=== PATIENT | male | born 1980 | race Caucasian/White ===

== ENCOUNTER 2020-06-26 21:03 | Emergency (ER) | payer OTHER, SELFPAY ==
[2020-06-26 21:21] VITALS: BP 177/124; PULSE 118; RESP 18; TEMP 37.8; O2SAT 95; BMI 41.3
--- NOTE | 2020-06-26 21:44 | XR_ITS ---
WS: [id number] Portable AP upright chest, 06/26/2020 Clinical Data: dyspnea/fever Comparison: Portable chest, 08/23/2018. Findings: There are patchy bilateral pulmonary opacities most consistent with pneumonia. No nodules, masses or effusions are seen. The heart is at the upper limits of normal. The pulmonary vascularity i s not increased. No pneumothorax is seen. XR/XR chest 1V portable [id number] Impression: Patchy bilateral pulmonary opacities most consistent with pneumonia.
--- NOTE | 2020-06-26 21:47 | CTR_ITS ---
PROCEDURE INFORMATION: Exam: CT Head Without Contrast Exam date and time: 06/26/2020 9:52 PM Age: 39 years old Clinical indication: Pain; Headache TECHNIQUE: Imaging protocol: Computed tomography of the head without contrast. Radiation optimization: All CT scans at this facility use at least one of these dose optimization techniques: automated exposure control; mA and/or kV adjustment per patient size (includes targeted exams where dose is matched to clinical indication); or iterative reconstruction. ADDITIONAL STUDY INFORMATION: Total DLP (mGy-cm): 987.03 COMPARISON: CT head wo con* [id number] 08/23/2018 9:17 AM FINDINGS: At least moderate intracranial arterial calcifications are demonstrated, unexpected for the patient's stated age. Evaluation of the brain demonstrates no other areas of abnormal density. Size of ventricular system appears within normal limits for the patient's stated age. No depressed calvarial fracture is demonstrated. Visualized paranasal sinuses and mastoid air cells demonstrate no significant opacification. CT/CT head wo con* [id number] IMPRESSION: No acute intracranial process is demonstrated. At least moderate intracranial arterial calcifications are demonstrated, unexpected for the patient's stated age. Radiation Dose CTDIVOL = (mGy): DLP = 987.03 (mGy-cm)
--- NOTE | 2020-06-26 22:33 | ED_ITS ---
HPI - Fever General: Chief Complaint: Fever Stated Complaint: fever 9 days, headache, cough, SOB Time Seen by Provider: 06/26/20 21:35 History of Present Illness: HPI Narrative: The patient is a 39-year-old male with past medical history hypertension who comes to the ER complaining of 9 days of headache, fever, shortness of breath, and in the past couple days he has had an increasing cough that feels deeper in his chest he says. He also complains of reduced smell and taste, fatigue, muscle aches. He says it started in the first couple days of what he thought was a sinus infection and congestion but it had worsened. MD elicited complaint: fever and malaise Exacerbating factors: nothing Relieving factors: nothing Associated symptoms: Reports chills, cough, headache(s), myalgias, nasal congestion and sinus pain; Deny flank pain, chest pain, extremity pain, stiffness or vomiting Treatments prior to arrival fever: acetaminophen Review of Systems General: Reports: 10 or more systems reviewed and unremarkable except in HPI and below Const: Reports: fever(s), chills and fatigue Eyes: Denies: change in vision, blurry vision or eye redness ENMT: Reports: nasal congestion and sinus pain Card: Denies: chest pain, palpitations, irregular heart rhythm, edema, dyspnea on exertion or orthopnea Resp: Reports: dyspnea and non-productive cough; Denies: productive cough GI: Denies: vomiting : Denies: flank pain, urinary frequency or urinary urgency Musc: Denies: neck pain, back pain, extremity pain, joint pain, joint redness, limited range of motion or muscle weakness Skin/Breast: Denies: rash, pruritus, erythema, skin pain or skin tenderness Neuro: Reports: headache(s) Psych: Denies: anxiety or depression Endo: Denies: polyuria All/Imm: Denies: urticaria, throat swelling or tongue swelling Physical Exam Const: COMMON NORMALS: no acute distress, average body habitus, patient oriented x3, no limitations, healthy appearing, alert and well nourished GENERAL APPEARANCE: cooperative, comfortable, well kempt and well developed ORIENTATION/CONSCIOUSNESS: Yes awake, Yes oriented to person, Yes oriented to place and Yes oriented to time HENMT: COMMON NORMALS: normocephalic, external ears normal and Normal external nose present HEAD & SCALP: normal to inspection and normocephalic NOSE: Normal external nose present EXTERNAL EAR: Yes external ears normal MOUTH: Normal oral and palatal mucosa present THROAT: posterior oropharynx normal Eye: COMMON NORMALS: Equal, round and reactive pupils present and EOMs intact bilaterally GENERAL EYE: appearance normal, both eyes and all related structures PUPIL: Yes Equal, round and reactive pupils present Neck/C-Spine: COMMON NORMALS: full ROM, no lymphadenopathy, no meningeal signs and no JVD GENERAL: Yes normal visual inspection Lymph: LYMPHATIC: no lymphadenopathy noted Chest: COMMONS NORMALS: normal inspection of the chest and normal palpation of entire chest wall Resp: COMMON NORMALS: normal respiratory effort, No retractions, No use of accessory muscles, clear to auscultation bilaterally and percussion normal EFFORT & INSPECTION: Yes able to speak in complete sentences AUSCULTATION: clear to auscultation bilaterally PERCUSSION: percussion normal Cardio: COMMON NORMALS: no JVD, regular rhythm, S1 normal heart sound present, S2 normal heart sound present and Peripheral pulses 2+ throughout RATE: tachycardic RHYTHM: regular rhythm HEART SOUNDS: S1 normal heart sound present and S2 normal heart sound present PERIPHERAL PULSES: Peripheral pulses 2+ throughout GI: COMMON NORMALS: Normal to inspection, nondistended, normoactive bowel sounds present, Soft to palpation, non-tender and no masses INSPECTION: Yes normal to inspection PALPATION: Yes Soft to palpation : COMMON NORMALS: Yes no CVA tenderness BLADDER/KIDNEY EXAM: Yes no CVA tenderness Back/Pelvis: COMMON NORMALS: no CVA tenderness, thoracic and lumbar spine normal to inspection, no thoracic nor lumbar tenderness and thoraco-lumbar ROM normal Extremity: COMMON NORMALS: normal to inspection, full ROM, capillary refill normal, no joint enlargement and no pedal edema GENERAL: Yes normal exam except as noted Neuro: COMMON NORMALS: patient oriented x3, CN's II-XII intact bilaterally, moves all extremities, no focal motor deficits, no sensory deficits noted and gait normal SENSORIUM/ORIENTATION: Yes alert, Yes oriented to person, Yes oriented to place and Yes oriented to time MENINGEAL SIGNS: Yes no meningeal signs Psych: COMMON NORMALS: mental status grossly normal, Normal thought process present, cooperative, normal affect and speech normal APPEARANCE: Yes well kempt ATTITUDE: Yes calm SPEECH: Yes normal speech THOUGHT PROCESS: Normal thought process present Skin: COMMON NORMALS: no rashes or lesions noted GENERAL SKIN EXAM: no rashes or lesions noted Course Vital Signs: Vital signs: Vital Signs Temperature 98.2 F 06/27/20 00:02 Pulse Rate 89 06/26/20 23:58 Respiratory Rate 18 06/26/20 23:58 Blood Pressure 159/93 06/26/20 23:58 Pulse Oximetry 93 06/26/20 23:58 MDM - Fever MDM Narrative: Medical decision making narrative: Patient swab negative for Covid however still clinically suspicious for it. Sent to [facility] swab. Tylenol and ibuprofen and IV fluids were given and reduced his fever. Patient feels better and stable for discharge. CT of his chest shows a patchy infectious process likely atypical pneumonia. Will discharge with Medrol Dosepak, azithromycin, and albuterol. Rotate Tylenol and ibuprofen and drink lots of fluids. Primary care physician in a couple days. ER with worsening symptoms Lab Data: Labs: Lab Results 06/26/20 06/26/20 06/26/20 Range/Units 22:25 22:25 22:25 WBC 5.1 (4.0-10.0) 10^3/ uL RBC 5.56 H (4.1-5.3) 10^6/u L Hgb 15.3 (11.7-16.6) g/dL Hct 46.0 (42.0-52.0) % MCV 82.7 (80-94) fL MCH 27.5 L (28.0-34.0) pg MCHC 33.3 (30.0-36.0) g/dL RDW 12.4 (12.1-15.1) % Plt Count 192 (130-400) 10^3/c mm MPV 11.5 H (7.4-10.4) fL Neut % (Auto) 62.9 % Lymph % (Auto) 27.7 % Nolan % (Auto) 8.2 % Eos % (Auto) 0.0 % Baso % (Auto) 0.4 % Neut # (Auto) 3.23 (1.8-7.7) 10^3/u L Lymph # (Auto) 1.4 (0.8-4.8) 10^3/u L Nolan # (Auto) 0.4 (0.2-0.9) 10^3/u L Eos # (Auto) 0.0 (0.0-0.8) 10^3/u L Baso # (Auto) 0.0 (0.0-0.1) 10^3/u L Nucleated RBC % (a uto) 0 % Nucleated RBCs # 0.0 /100WBC D-Dimer 0.42 (0-0.59) ug/mIFE U Sodium 129 L (136-145) mmol/L Potassium 3.6 (3.5-5.1) mmol/L Chloride 96 L (98-107) mmol/L Carbon Dioxide 22 (22-29) mmol/L Anion Gap 14.6 (5-19) BUN 7 (6-20) mg/dL Creatinine 0.5 L (0.7-1.2) mg/dL GFR Calculation 183.2 H (90-130) mL/min Glucose 227 H (65-115) mg/dL Calculated Osmolal ity 273 L (285-295) mOsm/k g Lactic Acid Calcium 8.3 L (8.5-10.5) mg/dL Total Bilirubin 0.4 (0.15-1.2) mg/dL AST 24 (0-40) U/L ALT 26 (0-41) U/L Alkaline Phosphata se 92 (40-130) IU/L Troponin T Gen 5 n g/L (0-15) ng/L C-Reactive Protein 74.5 H (0.0-4.9) mg/L Total Protein 6.8 (6.6-8.7) g/dL Albumin 3.6 (3.5-5.2) g/dL Globulin 3.2 (1.3-4.6) g/dL Influenza Type A A g (Negative) Influenza Type B A g (Negative) SARS-CoV-2 Ag (Rap id) (Negative) 06/26/20 06/26/20 06/26/20 Range/Units 22:25 22:25 22:25 WBC (4.0-10.0) 10^3/ uL RBC (4.1-5.3) 10^6/u L Hgb (11.7-16.6) g/dL Hct (42.0-52.0) % MCV (80-94) fL MCH (28.0-34.0) pg MCHC (30.0-36.0) g/dL RDW (12.1-15.1) % Plt Count (130-400) 10^3/c mm MPV (7.4-10.4) fL Neut % (Auto) % Lymph % (Auto) % Nolan % (Auto) % Eos % (Auto) % Baso % (Auto) % Neut # (Auto) (1.8-7.7) 10^3/u L Lymph # (Auto) (0.8-4.8) 10^3/u L Nolan # (Auto) (0.2-0.9) 10^3/u L Eos # (Auto) (0.0-0.8) 10^3/u L Baso # (Auto) (0.0-0.1) 10^3/u L Nucleated RBC % (a uto) % Nucleated RBCs # /100WBC D-Dimer (0-0.59) ug/mIFE U Sodium (136-145) mmol/L Potassium (3.5-5.1) mmol/L Chloride (98-107) mmol/L Carbon Dioxide (22-29) mmol/L Anion Gap (5-19) BUN (6-20) mg/dL Creatinine (0.7-1.2) mg/dL GFR Calculation (90-130) mL/min Glucose (65-115) mg/dL Calculated Osmolal ity (285-295) mOsm/k g Lactic Acid Cancelled Calcium (8.5-10.5) mg/dL Total Bilirubin (0.15-1.2) mg/dL AST (0-40) U/L ALT (0-41) U/L Alkaline Phosphata se (40-130) IU/L Troponin T Gen 5 n g/L 11 (0-15) ng/L C-Reactive Protein (0.0-4.9) mg/L Total Protein (6.6-8.7) g/dL Albumin (3.5-5.2) g/dL Globulin (1.3-4.6) g/dL Influenza Type A A g Negative (Negative) Influenza Type B A g Negative (Negative) SARS-CoV-2 Ag (Rap id) (Negative) 06/26/20 06/26/20 Range/Units 22:25 23:00 WBC (4.0-10.0) 10^3/ uL RBC (4.1-5.3) 10^6/u L Hgb (11.7-16.6) g/dL Hct (42.0-52.0) % MCV (80-94) fL MCH (28.0-34.0) pg MCHC (30.0-36.0) g/dL RDW (12.1-15.1) % Plt Count (130-400) 10^3/c mm MPV (7.4-10.4) fL Neut % (Auto) % Lymph % (Auto) % Nolan % (Auto) % Eos % (Auto) % Baso % (Auto) % Neut # (Auto) (1.8-7.7) 10^3/u L Lymph # (Auto) (0.8-4.8) 10^3/u L Nolan # (Auto) (0.2-0.9) 10^3/u L Eos # (Auto) (0.0-0.8) 10^3/u L Baso # (Auto) (0.0-0.1) 10^3/u L Nucleated RBC % (a uto) % Nucleated RBCs # /100WBC D-Dimer (0-0.59) ug/mIFE U Sodium (136-145) mmol/L Potassium (3.5-5.1) mmol/L Chloride (98-107) mmol/L Carbon Dioxide (22-29) mmol/L Anion Gap (5-19) BUN (6-20) mg/dL Creatinine (0.7-1.2) mg/dL GFR Calculation (90-130) mL/min Glucose (65-115) mg/dL Calculated Osmolal ity (285-295) mOsm/k g Lactic Acid 0.9 Calcium (8.5-10.5) mg/dL Total Bilirubin (0.15-1.2) mg/dL AST (0-40) U/L ALT (0-41) U/L Alkaline Phosphata se (40-130) IU/L Troponin T Gen 5 n g/L (0-15) ng/L C-Reactive Protein (0.0-4.9) mg/L Total Protein (6.6-8.7) g/dL Albumin (3.5-5.2) g/dL Globulin (1.3-4.6) g/dL Influenza Type A A g (Negative) Influenza Type B A g (Negative) SARS-CoV-2 Ag (Rap id) Negative (Negative) Discharge Plan Discharge Patient Disposition: Home Clinical Impression: Atypical pneumonia Condition: Stable Prescriptions: New azithromycin 250 mg tablet 250 mg PO DAILY 4 Days Qty: 4 RF: 0 Medrol (El) 4 mg tablets,dose pack See Rx Instructions .ROUTE .COMPLEX Qty: 21 RF: 0 albuterol sulfate 90 mcg/actuation HFA aerosol inhaler 2 inh inhalation Q6H PRN (Reason: shortness of breath or wheezing) 30 Days RF: 0 Discharge Orders: Discharge ED (Routine); Ordered 06/27/20 Ordered By: Raj Booth Referrals: Radha Arguello NP [Primary Care Provider] - Discharge Diet: Advance as tolerated Discharge Activity: Resume usual activity Patient Instructions: Bacterial Pneumonia (ED), Opioid Safety Activity Restrictions/Additional Instructions: You likely have had a viral infection that has given way to a bacterial pneumonia. Please take the antibiotics, steroids, and use the albuterol to help with shortness of breath. Rotate Tylenol and ibuprofen every 4-6 hours to help with your fevers. Follow-up with your primary care physician in 2 days to monitor improvement of your symptoms and return to the ER with worsening symptoms. 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
[2020-06-26 22:35] LABS: Basophils % 0.4 %; Hemoglobin 15.3 g/dL (11.7-16.6); Lymphocytes # 1.4 10^3/uL (0.8-4.8); Lymphocytes % 27.7 %; Mean Corpuscular HGB Conc 33.3 g/dL (30.0-36.0); Mean Corpuscular Hemoglobin 27.5 pg (28.0-34.0); Mean Corpuscular Volume 82.7 fL (80-94); Mean Platelet Volume 11.5 fL (7.4-10.4); Monocytes # 0.4 10^3/uL (0.2-0.9); Monocytes % 8.2 %; Neutrophils # 3.23 10^3/uL (1.8-7.7); Neutrophils % 62.9 %; Nucleated Red Blood Cells % 0 %; Platelet Count 192 10^3/cmm (130-400); Red Blood Count 5.56 10^6/uL (4.1-5.3); Red Cell Distribution Width 12.4 % (12.1-15.1); White Blood Count 5.1 10^3/uL (4.0-10.0)
[2020-06-26] MEDS: sodium chloride 0.9% 1,000 ML 150 ML IV (22:36)
[2020-06-26] MEDS: ondansetron 2 mg/ML SDV 2 mL 4 MG IV (22:39)
[2020-06-26] MEDS: ibuprofen 800 mg tablet PO (22:40)
[2020-06-26] MEDS: acetaminophen 325 mg Tablet 650 MG PO (22:40)
[2020-06-26 22:46] VITALS: BP 181/120; PULSE 104; RESP 21; O2SAT 93
[2020-06-26 22:49] LABS: D Dimer 0.42 ug/mIFEU (0-0.59)
[2020-06-26 22:55] LABS: Alanine Aminotransferase 26 U/L (0-41); Albumin Level 3.6 g/dL (3.5-5.2); Alkaline Phosphatase 92 IU/L (40-130); Blood Urea Nitrogen 7 mg/dL (6-20); C Reactive Protein 74.5 mg/L (0.0-4.9); Calcium 8.3 mg/dL (8.5-10.5); Carbon Dioxide 22 mmol/L (22-29); Chloride 96 mmol/L (98-107); Globulin 3.2 g/dL (1.3-4.6); Glomerular Filtration Rate 183.2 mL/min (90-130); Glucose 227 mg/dL (65-115); Osmolality Calculated 273 mOsm/kg (285-295); Sodium 129 mmol/L (136-145); Total Bilirubin 0.4 mg/dL (0.15-1.2); Total Protein 6.8 g/dL (6.6-8.7)
[2020-06-26 22:57] LABS: Influenza A by IFA Negative (Negative); SARS Covid-2 Antigen Negative (Negative); Troponin T (5th) Once 11 ng/L (0-15)
[2020-06-26 22:58] LABS: Influenza B by IFA Negative (Negative)
[2020-06-26 22:59] LABS: Anion Gap 14.6 (5-19); Aspartate Amino Transferase 24 U/L (0-40); Potassium 3.6 mmol/L (3.5-5.1)
--- NOTE | 2020-06-26 23:20 | CTR_ITS ---
PROCEDURE INFORMATION: Exam: CT Angiography Chest With Contrast Exam date and time: 06/26/2020 11:33 PM Age: 39 years old Clinical indication: Patient HX: Persistent fever. Exam performed twice due to iv leak. Best exam submitted. ; Additional info: R/O pe TECHNIQUE: Imaging protocol: Computed tomographic angiography of the chest with contrast. 3D rendering (Not supervised by radiologist): MIP and/or 3D reconstructed images were created by the technologist. Radiation optimization: All CT scans at this facility use at least one of these dose optimization techniques: automated exposure control; mA and/or kV adjustment per patient size (includes targeted exams where dose is matched to clinical indication); or iterative reconstruction. Contrast material: OMNI 350; Contrast volume: 75 ml; Contrast route: INTRAVENOUS (IV); COMPARISON: CR XR chest 1V portable [id number] 06/26/2020 9:43 PM RADIATION DOSE METRICS: Total DLP (mGy-cm): 1113.07 FINDINGS: Pulmonary arteries: Normal. No pulmonary emboli. Aorta: Unremarkable. No aortic aneurysm. No aortic dissection. Lungs: Patchy bilateral airspace opacities suggestive of an infectious process. Pleural spaces: Unremarkable. No pneumothorax. No pleural effusion. Heart: Unremarkable. No cardiomegaly. No pericardial effusion. Lymph nodes: Scattered prominent mediastinal lymph nodes measuring up to 11 mm, nonspecific. Liver: Hepatic steatosis. Bones/joints: Unremarkable. No acute fracture. Soft tissues: Unremarkable. CT/CT angio chest PE protcl [id number] IMPRESSION: 1. Negative for pulmonary embolus. 2. Patchy bilateral airspace opacities suggestive of an infectious process. 3. Hepatic steatosis. 4. Scattered prominent mediastinal lymph nodes measuring up to 11 mm, nonspecific. Radiation Dose CTDIVOL = (mGy): DLP = 1113.07 (mGy-cm)
[2020-06-26 23:31] VITALS: BP 184/135; PULSE 99; RESP 19; O2SAT 94
[2020-06-26 23:41] LABS: Lactic Sepsis W/Reflex 0.9 mmol/L (0.5-2.2)
[2020-06-26] MEDS: iohexol 350 mg/mL 100 mL Btl IV (23:43)
[2020-06-26] MEDS: azithromycin 250 mg Tablet 500 MG PO (23:55)
[2020-06-26] MEDS: cloNIDine 0.1 mg Tablet 0.2 MG PO (23:56)
[2020-06-26] MEDS: dexamethasone 10 mg/mL INJ IVP (23:57)
[2020-06-26 23:58] VITALS: BP 159/93; PULSE 89; RESP 18; O2SAT 93
[2020-06-27 00:02] VITALS: TEMP 36.8
[2020-06-27 00:22] VITALS: PULSE 92; RESP 18; O2SAT 96
[2020-06-27] MEDS: albuterol 8 gm MDI 2 PUFF INHALATION (00:22)
[2020-06-27 00:27] VITALS: PULSE 88
[2020-06-27 01:02] VITALS: BP 162/105; PULSE 93; RESP 17; O2SAT 93
[2020-06-28 18:11] LABS: Coronavirus Test Green County Detected
--- NOTE | 2020-06-29 08:11 | PC.NURSE ---
left message for patient to call back to ER and get covid results
--- NOTE | 2020-06-29 09:56 | PC.NURSE ---
notified pt of positive covid results. mailed result to pt at pt's request
== END 2020-06-27 01:02 | disposition home or self-care (01) ==
PROVIDERS: Emergency Provider Family Medicine; PCP Nurse Practitioner Family
DX: U07.1 COVID-19 (principal); J12.82 Pneumonia due to coronavirus disease 2019
CPT/HCPCS: 70450; 71045; 71275; 80053; 83605; 84484; 85025; 85378; 86140; 87426; 87635; 87804; 94640; 96374; 96375; 99284; J1100; J2405; J3535; J7030; Q0144; Q9967

== ENCOUNTER 2022-09-14 19:28 | Inpatient (IN) | payer BC, SELFPAY ==
[2022-09-14] VITALS (14 sets, daily range): BP systolic 151–196; BP diastolic 104–143; PULSE 93–102; RESP 17–27; TEMP 37.2; O2SAT 85–93; BMI 40.8; BMI 39.8
--- NOTE | 2022-09-14 19:29 | XRR_ITS ---
PROCEDURE INFORMATION: Exam: XR Chest Exam date and time: 09/14/2022 7:49 PM Age: 41 years old Clinical indication: Pain; Chest pressure; Additional info: Cp TECHNIQUE: Imaging protocol: Radiologic exam of the chest. Views: 1 view. COMPARISON: CR XR chest 1V portable [id number] 06/26/2020 9:43 PM FINDINGS: Lungs: Small amount of linear atelectasis versus scarring in the left lung base. No focal infiltrate or consolidation. No pulmonary vascular congestion or edema. Pleural spaces: Unremarkable. No pleural effusion. No pneumothorax. Heart/Mediastinum: Cardiac silhouette is near the upper limits of normal without enlargement. Bones/joints: Visualized osseous structures show no acute abnormality. XR/XR chest 1V portable [id number] IMPRESSION: Small amount of linear atelectasis versus scarring left lung base and without acute findings otherwise.
--- NOTE | 2022-09-14 19:29 | ECG_ITS ---
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 Measurements Intervals [place] Rate: 94 P: 53 OK: 180 QRS: -4 QRSD: 100 T: 149 QT: 367 QTc: 461 Interpretive Statements SINUS RHYTHM POSSIBLE LEFT ATRIAL ENLARGEMENT [-0.1mV P-WAVE IN V1/V2] ST ELEVATION, CONSIDER ANTERIOR INJURY [MARKED ST ELEVATION W/O NORMALLY INFLECTED T-WAVE IN V2-V5] ACUTE IA Compared to ECG 08/23/2018 10:43:27 ST (T wave) deviation now present Myocardial infarct finding now present Electronically Signed On 09-15-2022 23:30:10 CDT by Richar Martinez M.D. [email or web address]
--- NOTE | 2022-09-14 19:36 | XACV_ITS ---
Exam Room: [place] [address] Ht: 178 cm Wt: 129 kg BSA: 2.58 m2 Gender: Male : 1980 Exam Priority: Routine Procedure(s): Procedure Description: Diagnostic procedure Procedure Description: PCI procedure Procedure Description: Left Heart Catheterization Procedure Description: Drug Eluting Coronary Stent Procedure Description: PTCA Procedure Description: Miscellaneous Procedure Description: ACT Procedure Description: Coronary Angiography Diagnostic Cath Status: Emergency Diagnostic Findings * Acute myocardial infarction. * Left main normal size caliber patent with no obstructive disease. * Left circumflex artery appears to be patent with large first OM gives off 2 lateral branches first lateral branch is 100% occluded second lateral branch is patent. Second obtuse marginal branch is 100% occluded distal left cervical artery is diffusely diseased. * Left anterior descending artery has diffuse calcification, plaque is noted throughout the extent of this vessel and the diagonal branches. Mid LAD is 100% occluded with SILVIA 0 flow contrast retention is noted suggestive of old thrombus.Septal branches noted first and second was a diffusely diseased. * Right coronary artery codominant vessel appears to be patent with no obstructive disease in the proximal mid and distal segment. A large RV branch is noted which is patent with distal vessel being small in caliber has diffuse plaque and mild to moderate disease noted involving the segment of the vessel. * Left heart catheterizationLV pressures were noted and a pullback was performed. PCI Status: Emergency PCI LVEF Assessed: Yes PCI Indication: STEMI - Immediate PCI for STEMI Interventional Findings * 1. After completion of diagnostic imaging, XB 3.5 guide was placed in the left main artery. * 2. Short run-through wire was taken across the lesion and placed distally in the upper LAD for which PTCA involving the 100% occluded LAD was performed with a 2.0 x 12 m balloon. * 3. Intracoronary adenosine and IV heparin was given as to be 1 flow was noted after PTCA. * 4. This was followed by stent placement involving the lesion measured 2.5 X12 mm with deployed at 25 seconds. * 5.After stent deployment, post dilatation with a 2.5 X 12mm noncompliant balloon. * 6. IVUS evaluation was completed along with stent deployment which revealed mall apposition of the mid and proximal segment following which repeat postdilatation with a 2.75 x 12 non compliant balloon. * 7. After postdilatation SILVIA-3 flow was noted involving the lesion in the mid to distal LAD. Apical LAD revealed a small area of 100% occlusion towards the apex which was a less than 1 mm vessel. Conclusions 1. Acute anterior myocardial infarction with delayed presentation with successful PTCA stent placement to mid LAD. Recommendations * Aspirin 81 mg p.o. once a day for life. * Brilinta 91 p.o. twice daily for 12 months. * Routine post PCI care risk factor modification. Diagnostic RX Recommendation: PCI w/o planned CABG Left Ventriculography Findings: * Left Ventriculogram not performed Empty. Pressures Phase:Rest AO : 195 / 134 ( 161 ) @ 4:15:04 PM 181 / 126 ( 151 ) @ 4:15:04 PM 169 / 135 ( 155 ) @ 4:15:04 PM 164 / 111 ( 136 ) @ 4:15:04 PM 175 / 118 ( 145 ) @ 4:15:04 PM 154 / 101 ( 126 ) @ 4:15:04 PM 152 / 101 ( 125 ) @ 4:15:04 PM 149 / 99 ( 121 ) @ 4:15:04 PM 172 / 87 ( 115 ) @ 4:15:04 PM Clinical Evaluation EBL: 5mL-10mL Procedural Details Pre-Procedure Time Out. Identified patient by full name and date of as verbalized by the patient/guarantor. Does the consent match the physician's order: N/A Emergent. Accurate & Complete Informed Consent: N/A Emergent. Inpatient/Outpatient History & Physical on Chart: N/A Emergent. If H&P is completed, is and addenduem needed: N/A Emergent; If yes, is the addendum complete: N/A Emergent. Visualize and Verify Site with Patient/Guarantor: N/A. Relevant Radiology Images available: N/A Emergent. Pre-op teaching completed and patient verbalized understanding. The risks, benefits, and alternatives of sedation and/or procedure were discussed by physician. The patient agrees to continue. Procedure started. [facility] Clinical Fraility Score: 4: Vulnerable. Ecological Risk Assessor Indications: ACS > 24 hours. Chest Pain Symptom Assessment: Typical Angina Symptoms. Correct patient, site and procedure confirmed by cath team. Current diagnosis: STEMI. PERRLA. Strong, equal hand naval architect specialist bilaterally. Lungs clear x 5 lobes. IV Site on Arrival: 18 gauge in the right hand. IV Site on Arrival: 20 gauge in the right anticubital. Pre Procedural Pulses: bilateral dorsalis pedis was 2+. Oxygen started at liters/min via nasal canula. Oxygen started at 2liters/min via nasal canula. bilateral groins was prepped with chloroprep then draped in the usual sterile fashion. Baseline sample Acquired. HR: 98 BPM. Physician notified. Baseline sample Acquired. HR: 98 BPM. Physician arrived. Physician scrubbed in. Immediate Pre-Procedure Time Out. Correct Patient: N/A Emergent; Correct Procedure: N/A Emergent; Correct Site: N/A Emergent; Correct Patient Position: N/A Emergent; Correct Supplies: N/A Emergent; Dried Flammable Prep: N/A Emergent; Blood Products Available: N/A Emergent;. Lidocaine 1% infiltrated to the right groin. Arterial access obtained. 6 grenadian XB 3.5 guide catheter was inserted over the wire. Multiple views taken of left coronary artery. Runthrough guidewire was advanced through the guide catheter to lesion in the mid LAD. Inflation number : 1 A AB MINI TREK 2.00X12 RX BALLOON was prepped and advanced across the Mid LAD , then inflated to 0 STEPHANIE for 0:06 seconds. Results checked. Inflation number: 2 The AB MINI TREK 2.00X12 RX BALLOON was reinflated across the Mid LAD, to 12 STEPHANIE for 0:05 seconds. Inflation number: 3 The AB MINI TREK 2.00X12 RX BALLOON was reinflated across the Mid LAD, to 12 STEPHANIE for 0:04 seconds. Inflation number: 4 The AB MINI TREK 2.00X12 RX BALLOON was reinflated across the Mid LAD, to 12 STEPHANIE for 0:04 seconds. Inflation number: 5 The AB MINI TREK 2.00X12 RX BALLOON was reinflated across the Mid LAD, to 12 STEPHANIE for 0:04 seconds. Results checked. Balloon out. ACT drawn. Results out of range high seconds. Therapeutic limits - pre-heparin administration 90-150 seconds and monitoring heparin during a vascular procedure >250 seconds. Results checked. Inflation Number : 6 A MDT R FRANCISCO 2.5X12 CHRIS -Lot Number# [id number] exp date [id number] was prepped and advanced across the Mid LAD. The stent was deployed at 12 STEPHANIE for 0:17 seconds. LAb called trop 657. Dr Olmos notified. no action at this time. Stent balloon out over wire. Results checked. Results checked. ACT drawn. Results 197 seconds. Therapeutic limits - pre-heparin administration 90-150 seconds and monitoring heparin during a vascular procedure >250 seconds. Inflation number : 7 A MDT NC EUPHORA RX 2.56K11FF BALLOON was prepped and advanced across the Mid LAD , then inflated to 12 STEPHANIE for 0:31 seconds. Balloon out. IVUS catheter in over wire. IVUS catherter out. Inflation number : 8 A MDT NC EUPHORA RX 2.02I01CM BALLOON was prepped and advanced across the Mid LAD , then inflated to 12 STEPHANIE for 0:15 seconds. Results checked. Wire out. A 6 grenadian JR4 catheter in over wire. EDP Sample taken: LV Off; HR: 0 BPM; SpO2: 95%. EDP Sample taken: LV Off; HR: 0 BPM; SpO2: 95%. Pullback taken: LV Off; AO Off; Mean: , Peak to Peak: , SEP: ; HR: 23 BPM; SpO2: 94%. Multiple views taken of right coronary artery. ACT drawn. Results 269 seconds. Therapeutic limits - pre-heparin administration 90-150 seconds and monitoring heparin during a vascular procedure >250 seconds. Post Procedure: Pulses reassessed and unchanged. PERRLA. Strong, equal hand naval architect specialist bilaterally. No VTE prophylaxis required. Admit Source: Emergency department. Medication's Wasted: Other = 50mcg fentanyl mL. Total IV fluids: 48 mL. PCI Indication: STEMI. Post-op diagnosis: STEMI. Complications: none. Estimated blood loss: 5mL-10mL. Responsiveness - Normal response to verbal stimuli; alert and oriented, PERRLA. Airway - Unaffected, no intervention required; spontaneous ventilation. Circulation: W/N/L, pulses unchanged. Nausea/Vomiting: No. A Suture was successful obtaining hemostatsis at the Right Femoral artery insertion site. Procedure completed. Patient transferred by bed to ICU. Vital chart was stopped. Access Site Site: Right Femoral artery Sheath Size: 6 Fr Hemostasis Method: Suture Hemostasis Success: Successful Complication Findings: none. Procedure Medications Start: 8:06 PM Stop: 8:06 PM Medication: Versed 1 mg and Fentanyl 25 mcg Amount: 1 Route: I.V. Start: 8:06 PM Stop: 8:06 PM Medication: Hydralazine Amount: 10 mg Route: I.V. Start: 8:06 PM Stop: 8:06 PM Medication: Versed Amount: 1 mg Route: I.V. Start: 8:06 PM Stop: 8:06 PM Medication: Fentanyl Amount: 50 mcg Route: I.V. Start: 8:11 PM Stop: 8:11 PM Medication: Fentanyl Amount: 25 mcg Route: I.V. Start: 8:11 PM Stop: 8:11 PM Medication: Versed Amount: 2 mg Route: I.V. Start: 8:12 PM Stop: 8:12 PM Medication: Hydralazine Amount: 10 mg Route: I.V. Start: 8:16 PM Stop: 8:16 PM Medication: Adenosine (Adenocard) Amount: 100 mcg Route: I.C. Start: 8:23 PM Stop: 8:23 PM Medication: Nitroprusside (Nipride) Amount: 75 mcg Route: I.C. Start: 8:26 PM Stop: 8:26 PM Medication: Aggrastat 12.5 mg/250 mL Amount: ml Route: I.V. bolus Start: 8:34 PM Stop: 8:34 PM Medication: Heparin Amount: 2000 units Route: I.V. Start: 8:36 PM Stop: 8:36 PM Medication: Adenosine (Adenocard) Amount: 80 mcg Route: I.C. Start: 8:37 PM Stop: 8:37 PM Medication: Nitroprusside (Nipride) Amount: 80 mcg Route: I.C. Start: 8:42 PM Stop: 8:42 PM Medication: Nitrogylcerin Amount: 10 mcg/min Route: I.V. drip Start: 8:50 PM Stop: 8:50 PM Medication: Heparin Amount: 4000 units Route: I.V. Start: 8:52 PM Stop: 8:52 PM Medication: Aggrastat 12.5 mg/250 mL Amount: 65 ml Route: I.V. bolus Start: 8:59 PM Stop: 8:59 PM Medication: Heparin Amount: 1000 units Route: I.V. I, the attending physician, have reviewed and verified all procedure medications. Yes, all medications given per verbal order Report Signatures Finalized by Jose Maria Olmos MD on 09/14/2022 09:41 PM
[2022-09-14] MEDS: sodium chloride 0.9% 1,000 ML 999 ML IV (19:40)
[2022-09-14 19:41] LABS: Basophils # 0.1 10^3/uL (0.0-0.1); Basophils % 0.4 %; Eosinophils # 0.1 10^3/uL (0.0-0.8); Eosinophils % 0.4 %; Hematocrit 47.7 % (42.0-52.0); Lymphocytes # 3.1 10^3/uL (0.8-4.8); Lymphocytes % 22.5 %; Mean Corpuscular HGB Conc 33.5 g/dL (30.0-36.0); Mean Corpuscular Hemoglobin 27.4 pg (28.0-34.0); Mean Corpuscular Volume 81.7 fl (80-94); Mean Platelet Volume 12.2 fL (7.4-10.4); Monocytes # 1.3 10^3/uL (0.2-0.9); Monocytes % 9.4 %; Neutrophils # 9.06 10^3/uL (1.8-7.7); Neutrophils % 66.9 %; Nucleated Red Blood Cells % 0 %; Platelet Count 199 10^3/cmm (130-400); Red Blood Count 5.84 10^6/uL (4.1-5.3); Red Cell Distribution Width 13.1 % (12.1-15.1); White Blood Count 13.6 10^3/uL (4.0-10.0)
[2022-09-14] MEDS: heparin 5,000 unit/mL INJ 1 mL 4000 UNIT IVP (19:42)
[2022-09-14] MEDS: clopidogrel 300 mg Tablet 600 MG PO (19:42)
[2022-09-14] MEDS: sodium chloride 0.9% 500 ML 999 ML IV (19:45)
[2022-09-14] MEDS: heparin 5,000 unit/mL INJ 1 mL 2000 UNIT IVP (19:52)
--- NOTE | 2022-09-14 19:56 | ED_ITS ---
HPI - Chest Pain General: Chief Complaint: Chest Pain Stated Complaint: ID Time Seen by Provider: 09/14/22 19:29 Source: patient and EMS Mode of arrival: EMS Limitations: no limitations History of Present Illness: 41-year-old male who states been having chest pain over the last 2 days states it is worse today. States been his left shoulder left chest rates pain a 4 out of 10 currently. Denies any shortness of breath or nausea EKG by EMS showed STEMI STEMI alert was activated. Denies any worsening proving factors denies any vomiting Associated symptoms: Deny abdominal pain, dyspnea, fever(s), nausea or vomiting Review of Systems Const: Denies: fever(s) or chills ENMT: Denies: throat pain or dental pain Card: Reports: chest pain Resp: Denies: dyspnea GI: Denies: abdominal pain, nausea, vomiting or diarrhea Musc: Denies: neck pain or back pain Skin/Breast: Denies: rash Neuro: Denies: headache(s) PFSH ED PFSH: Medical History (Updated 09/14/22 @ 19:58 by Sherrie Gonzalez MD) Hypertension Social History (Updated 09/14/22 @ 19:57 by Sherrie Gonzalez MD) Alcohol intake: never Physical Exam Const: COMMON NORMALS: no acute distress and patient oriented x3 HENMT: COMMON NORMALS: normocephalic and atraumatic HEAD & SCALP: normocephalic and atraumatic Eye: COMMON NORMALS: Equal, round and reactive pupils present and EOMs intact bilaterally PUPIL: Yes Equal, round and reactive pupils present Neck/C-Spine: COMMON NORMALS: full ROM and supple Chest: COMMONS NORMALS: normal inspection of the chest and normal palpation of entire chest wall Resp: COMMON NORMALS: normal respiratory effort, No retractions, No use of accessory muscles and clear to auscultation bilaterally AUSCULTATION: clear to auscultation bilaterally Cardio: COMMON NORMALS: regular rate, regular rhythm and No murmurs present (Cardio) RATE: regular rate RHYTHM: regular rhythm GI: INSPECTION: Yes normal to inspection Extremity: COMMON NORMALS: normal to inspection and full ROM Neuro: COMMON NORMALS: patient oriented x3, moves all extremities and no focal motor deficits Psych: COMMON NORMALS: mental status grossly normal, Normal thought process present and cooperative THOUGHT PROCESS: Normal thought process present Skin: COMMON NORMALS: no rashes or lesions noted and no wounds GENERAL SKIN EXAM: no rashes or lesions noted Course Vital Signs: Vital signs: Vital Signs Temperature 98.9 F 09/14/22 19:43 Pulse Rate 93 09/14/22 19:43 Respiratory Rate 24 H 09/14/22 19:43 Blood Pressure 196/132 09/14/22 19:43 Pulse Oximetry 93 09/14/22 19:43 Oxygen Delivery Me thod Room Air 09/14/22 19:43 MDM - Chest Pain Medical Decision Making Patient presents here with ST elevation ID patient given Plavix heparin here Fingerprint Technician team is here and taken to the Fingerprint Technician. Lab Data 09/14/22 Unknown 09/14/22 Unknown Laboratory Results WBC 13.6 10^3/uL (4.0-10.0) H 09/14/22 Unknown RBC 5.84 10^6/uL (4.1-5.3) H 09/14/22 Unknown Hgb 16.0 g/dL (11.7-16.6) 09/14/22 Unknown Hct 47.7 % (42.0-52.0) 09/14/22 Unknown MCV 81.7 fl (80-94) 09/14/22 Unknown MCH 27.4 pg (28.0-34.0) L 09/14/22 Unknown MCHC 33.5 g/dL (30.0-36.0) 09/14/22 Unknown RDW 13.1 % (12.1-15.1) 09/14/22 Unknown Plt Count 199 10^3/cmm (130-400) 09/14/22 Unknown MPV 12.2 fL (7.4-10.4) H 09/14/22 Unknown Neut % (Auto) 66.9 % 09/14/22 Unknown Lymph % (Auto) 22.5 % 09/14/22 Unknown [place] % (Auto) 9.4 % 09/14/22 Unknown Eos % (Auto) 0.4 % 09/14/22 Unknown Baso % (Auto) 0.4 % 09/14/22 Unknown Neut # (Auto) 9.06 10^3/uL (1.8-7.7) H 09/14/22 Unknown Lymph # (Auto) 3.1 10^3/uL (0.8-4.8) 09/14/22 Unknown [place] # (Auto) 1.3 10^3/uL (0.2-0.9) H 09/14/22 Unknown Eos # (Auto) 0.1 10^3/uL (0.0-0.8) 09/14/22 Unknown Baso # (Auto) 0.1 10^3/uL (0.0-0.1) 09/14/22 Unknown Nucleated RBC % (auto) 0 % 09/14/22 Unknown Nucleated RBCs # 0.0 /100WBC 09/14/22 Unknown Critical Care Time Critical Care Time: Critical Care Time: Yes Total Critical Care Time: 35 Attestation: The high probability of a clinically significant, sudden or life threatening deterioration of the patient's cv system(s) required my full and direct attention, intervention and personal management. The critical care time is as shown. This time is in addition to time spent performing any reported procedures but includes the following: [x] Data and vital sign review and interpretation [x] Patient assessment, examination and intervention [x] Documentation [x] Medication orders and management Discharge Plan Discharge Patient Disposition: Admitted As Inpatient Clinical Impression: ST elevation myocardial infarction (STEMI) Prescriptions: No Action Medrol (El) 4 mg tablets,dose pack See Rx Instructions .ROUTE .COMPLEX Qty: 21 0RF Rx Instructions: orally per package directions Referrals: Da Espinosa [Primary Care Provider] - Coding Level of Care Code ED Senior Designer/Art Director for Marti Aguilar
[2022-09-14 20:17] LABS: Alanine Aminotransferase 31 U/L (0-41); Albumin Level 4.4 g/dL (3.5-5.2); Alkaline Phosphatase 130 U/L (40-130); Blood Urea Nitrogen 9 mg/dL (6-20); Calcium 9.6 mg/dL (8.5-10.5); Carbon Dioxide 27 mmol/L (22-29); Chloride 95 mmol/L (98-107); Globulin 3.6 g/dL (1.3-4.6); Glucose 304 mg/dL (65-115); Osmolality Calculated 288 mOsm/kg (285-295); Sodium 134 mmol/L (136-145); Total Bilirubin 0.8 mg/dL (0.15-1.2)
[2022-09-14 20:19] LABS: Anion Gap 15.8 (5-19); Aspartate Amino Transferase 43 U/L (0-40); Potassium 3.8 mmol/L (3.5-5.1)
[2022-09-14 20:20] LABS: Troponin(5th) Baseline 657 ng/L (0-15)
--- NOTE | 2022-09-14 21:07 | USCV_ITS ---
Swapnil Narayan Age: 41 Gender: M : 1980 Exam Date: 09/14/2022 22:13 Ordering Phys: Johnathon Olmos MD ([email or web address]) Technologist: Kelton Landry Exam Location: [facility] [place] Indication: mi post cath BP: 164 / 110 HR: 102 Rhythm: Sinus Technical Quality: Adequate MEASUREMENTS (Male / Female) Normal Values 2D ECHO LV Diastolic Diameter PLAX 3.6 cm 4.2 - 5.9 / 3.9 - 5.3 cm LV Systolic Diameter PLAX 2.6 cm IVS Diastolic Thickness 1.3 cm 0.6 - 1.0 / 0.6 - 0.9 cm IVS Systolic Thickness 1.3 cm LVPW Diastolic Thickness 1.4 cm 0.6 - 1.0 / 0.6 - 0.9 cm LVPW Systolic Thickness 1.5 cm LVOT Diameter 2.0 cm LV Ejection Fraction 2D Teich 53.2 % LV Ejection Fraction MOD 2C 49.8 % LV Ejection Fraction 2C AL 50.2 % LA Diameter 4.0 cm M-MODE Aortic Annulus Diameter 3.8 cm LA Ao Ratio MM 1.1 MV E Point Septal Separation 1.6 cm DOPPLER AV Peak Velocity 111.0 cm/s LVOT Peak Velocity 118.0 cm/s AV Area Cont Eq vti 3.9 cm squared AV Area Cont Eq pk 3.4 cm squared MV Area PHT 6.3 cm squared Mitral E to A Ratio 0.8 MV E' Velocity 48.0 cm/s Mitral E to MV E' Ratio 13.0 Mitral E to LV E' Lateral Ratio 15.8 Mitral E to LV E' Septal Ratio 11.2 TR Peak Velocity 134.3 cm/s TR Peak Gradient 7.2 mmHg TV Peak E Velocity 88.0 cm/s Right Atrial Pressure 3.0 mmHg Pulmonary Artery Systolic Pressu 10.2 mmHg FINDINGS Left Ventricle Normal left ventricular size, systolic function and wall thickness, with mild left ventricular hypertrophy. Normal diastolic filling pattern. Moderate apical hypokinesia is noted Right Ventricle The right ventricle is normal in size and function. Right Atrium The right atrium is normal in size. Left Atrium The left atrium is normal in size. Mitral Valve Structurally normal mitral valve without significant stenosis or prolapse. There is no significant mitral regurgitation. Aortic Valve Structurally normal aortic valve without significant sclerosis or stenosis. There is no significant aortic regurgitation. Tricuspid Valve Structurally normal tricuspid valve without significant stenosis or regurgitation. Pulmonary artery systolic pressure is normal. Pulmonic Valve Structurally normal pulmonic valve without significant stenosis. There is no pulmonic regurgitation. Pericardium Normal pericardium without effusion. Aorta Normal ascending aorta dimension. IVC The inferior vena cava appears normal. CONCLUSIONS Normal left ventricular size, systolic function and wall thickness, with mild left ventricular hypertrophy. Normal diastolic filling pattern. Moderate apical hypokinesia is noted No significant valve abnormalities. There are no intracardiac masses. No pericardial effusion Jose Maria Olmos MD (Electronically Signed) Final Date: 15 Sep 2022 13:22 S
--- NOTE | 2022-09-14 21:07 | P.HP_ITS ---
Providers/Chief Complaint Admitting Physician: Sirisha Olmos Primary Care Provider: Da Espinosa Chief Complaint: GA History of Present Illness Swapnil Narayan is a 41 year old male known to have hypertension, hyperlipidemia, obesity, no known previous cardiac history who presents for evaluation of * Ongoing chest pain since 1:30 AM early this morning. * Intermittent chest pain for the past 4 to 5 days. According to the patient, he has been having discomfort on and off for the last 3 to 4 days with initial episode of left arm/shoulder discomfort which he rates an 8 on scale of 10 which occurred for over 2 hours on Thursday. This discomfort is subsided, but then he started having discomfort around his large right shoulder but he did not seek medical care at that time. He woke up early this morning around 1:30 AM with ongoing chest discomfort with nausea diaphoresis he rates it at a scale of 10, subsequently partially improved. He did not proceed to emergency room for further evaluation until about an hour prior to presentation when he started driving to first [facility] emergency room. In route EMS services were called, and patient was transported over to [facility] emergency room with ongoing chest pain. In route, patient underwent an EKG which confirmed anterior microinfarction following STEMI was activated. He was evaluated emergency room where he had ongoing chest discomfort rated a 5 on a scale of 10, was noted to be hypertensive blood pressures over 160 systolic. Patient was advised about findings of the EKG, the fact that he had an ongoing myocardial infarction with delayed presentation of over 12 hours. Primary PCI was offered and patient agreeable to proceed. Risk benefits complications including but not limited to severe stroke hematoma formation anemia were explained to the patient who seems to understand like to proceed. This was also discussed with his who arrived little later at the emergency room. Patient denies history of congestive heart failure, rheumatic fever or myocardial infarction.. Review of Systems General: Reports: 10 or more systems reviewed and unremarkable except in HPI and below Const: Denies: fever(s), chills, body aches, change in appetite, change in weight, fatigue, malaise, night sweats, diaphoresis, change in sleep pattern, daytime sleepiness or snoring Eyes: Denies: change in vision, blurry vision, blind spots, photophobia, eye discomfort, increased production of tears or seeing flashes Card: Reports: other (See HP) Resp: Reports: other (See HP) GI: Denies: abdominal pain, vomiting, hematemesis, heartburn or GI cramping Medications/Allergies Home Medications Medication Instructions Recorded Confirmed Last Taken Type methylprednisolone 4 mg tablets in See Rx Instructions PO .COMPLEX 06/27/20 Unknown Rx a dose pack (Medrol (El)) #21 ea citalopram 40 mg tablet 40 mg PO DAILY 09/14/22 09/14/22 09/14/22 History clonidine HCl 0.2 mg tablet 0.2 mg PO BID 09/14/22 09/14/22 09/14/22 History hydrochlorothiazide 12.5 mg capsule 12.5 mg PO DAILY 09/14/22 09/14/22 09/14/22 History metformin 1,000 mg tablet 500 mg PO BID 09/14/22 09/14/22 Unknown History metoprolol tartrate 100 mg tablet 100 mg PO BID 09/14/22 09/14/22 09/14/22 History telmisartan 80 mg tablet 80 mg PO DAILY 09/14/22 09/14/22 09/14/22 History Allergies Allergy/AdvReac Type Severity Reaction Status Date / Time No Known Allergies Allergy Verified 06/26/20 21:21 PFSH Acute PFSH: Medical History (Updated 09/14/22 @ 21:02 by Johnathon Olmos MD) Hypertension ST elevation myocardial infarction (STEMI) Social History (Updated 09/14/22 @ 19:57 by Sherrie Gonzalez MD) Alcohol intake: never Vitals/I&O/Wt Last Vital Signs Temp 98.9 F 09/14/22 19:43 Pulse 93 09/14/22 19:43 Resp 24 H 09/14/22 19:43 BP 196/132 09/14/22 19:43 Pulse Ox 93 09/14/22 19:43 O2 Del Method Room Air 09/14/22 19:43 Weight last 48 hrs Weight 285 lb Physical Exam Const: COMMON NORMALS: no acute distress and patient oriented x3 GENERAL APPEARANCE: cooperative and comfortable HENMT: COMMON NORMALS: normocephalic, atraumatic, Normal nasal mucous membranes and turbinates present and oropharynx normal Eye: COMMON NORMALS: Equal, round and reactive pupils present and EOMs intact bilaterally PUPIL: Yes Equal, round and reactive pupils present Neck/C-Spine: COMMON NORMALS: full ROM and no JVD Chest: COMMONS NORMALS: normal inspection of the chest Resp: COMMON NORMALS: normal respiratory effort, No use of accessory muscles and clear to auscultation bilaterally AUSCULTATION: clear to auscultation bilaterally Cardio: COMMON NORMALS: no JVD, S1 normal heart sound present, S2 normal heart sound present, No gallops present (Cardio) and No murmurs present (Cardio) JUGULAR VENOUS DISTENTION: no JVD HEART SOUNDS: S1 normal heart sound present and S2 normal heart sound present Extremity: COMMON NORMALS: normal to inspection and no pedal edema Data 09/14/22 Unknown 09/14/22 Unknown A&P Assessment and plan (1) ST elevation myocardial infarction (STEMI): * Admit to ICU. * Will continue IV nitroglycerin for blood pressure management. * Initiate aspirin 80 mg p.o. once a day. * Will continue Plavix tonight and change to Brilinta 90 g p.o. twice daily tomorrow morning. * Will use fentanyl for pain management as per post-cath orders. * Will arrange for coronary cardiogram cardioversion evaluation. * Will initiate KATTY inhibitor's beta-blockers high-dose statins in addition to DAPT therapy. * Will start Protonix 40 p.o. once a day for GI prophylaxis. (2) Hypertension: * Will initiate and continue IV diuresis and blood pressure control. * Check serial Chem-7 correct potassium magnesium as needed * Would optimize KATTY inhibitor's and beta-blockers for blood pressure management. * Would encourage structure of his program, low-sodium low-cholesterol diet. Attestations Medical Necessity Statement*: Swapnil Narayan's hospital stay will require greater than 2 midnights for Coding Level of Care Code Acute Code for [facility] Diagnoses ST elevation myocardial infarction (STEMI) I21.3 Hypertension I10
[2022-09-14] MEDS: atorvastatin 40 mg Tablet 80 MG PO (22:00)
[2022-09-14] MEDS: lisinopril 10 mg Tablet PO (22:00)
[2022-09-14] MEDS: metoprolol succinate ER (24 HR) 25 mg Tablet PO (22:00)
[2022-09-14] MEDS: pantoprazole DR 40 mg Tablet PO (22:01)
[2022-09-14] MEDS: nitroglycerin drip 50 MG/250 ML PREMIX IV (22:10)
[2022-09-14] MEDS: potassium chloride ER 20 mEq Tablet PO (22:29)
[2022-09-14 22:42] LABS: Troponin 5 2HR 1374 ng/L (0-15); Troponin 5 2HR Delta 717 ABS# (0-10)
[2022-09-14] MEDS: diphenhydrAMINE 50 mg/mL SDV 1mL IVP (23:33)
[2022-09-14] MEDS: cloNIDine 0.1 mg/24 hr Patch 1 PATCH TRANSDERMA (23:33)
[2022-09-14] MEDS: insulin lispro 100 unit/1 mL SUBCUT (23:57)
[2022-09-15] VITALS (73 sets, daily range): BP systolic 113–202; BP diastolic 73–163; PULSE 80–107; RESP 12–31; TEMP 36.8–37.4; O2SAT 87–98
[2022-09-15 00:31] LABS: Glucose Point of Care 277 mg/dL (70-110)
[2022-09-15] MEDS: morphine 4 mg/mL SDV 1 mL 1 MG IVP ×3 (00:49→08:30)
--- NOTE | 2022-09-15 01:06 | ECG_ITS ---
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 Measurements Intervals [place] Rate: 96 P: 56 NV: 172 QRS: -9 QRSD: 104 T: 139 QT: 364 QTc: 462 Interpretive Statements SINUS RHYTHM ANTERIOR MYOCARDIAL INFARCTION , PROBABLY RECENT [40+ ms Q WAVE AND/OR ST/T ABNORMALITY IN V3/V4] ACUTE NC Compared to ECG 09/14/2022 19:29:03 ST (T wave) deviation no longer present Myocardial infarct finding still present Electronically Signed On 09-16-2022 8:34:18 CDT by Richar Martinez M.D. [email or web address]
[2022-09-15 01:59] LABS: Troponin 5 6HR 1265 ng/L (0-15); Troponin 5 6HR Delta 608 ng/L (0-12)
[2022-09-15 03:37] LABS: Partial Thromboplastin Time 28.4 SECONDS (23.9-36.7)
[2022-09-15] MEDS: ticagrelor 90 mg Tablet PO ×2 (06:18→17:15)
--- NOTE | 2022-09-15 07:39 | PC.NURSE ---
Physician Communication Around 2210, Patient complaining of chest pain remaining at a 7-8 on a scale of 1-10. Blood pressures remaining elevated. Nitro drip available at bedside, with no active order. Dr. Olmos contacted and order received for a nitro drip nontitrable at 10 mcg/min, goal blood pressure 150-160 systolic, 100 diastolic. Additional orders received for 20 meq KCL PO once and to remove femoral sheath when blood pressure and ptt appropriate. See MAR for medication administration. At 2300, Patient's blood pressure remaining elevated despite 10 mcg/min of nitro and patient still complaining of severe chest pain. Dr. Olmos contacted; Orders received to start titratable nitro drip for hypertension per protocol, start clonidine 0.1 mg transdermal once weekly starting tonight, administer 50 mg benadryl IVP once, start all home medications for in the AM except for metformin, start low intensity insulin sliding scale, and start 1 mg morphine IVP Q2HR PRN for pain. Medications administered per JUN. Sheath pulled at 0400, pressure held for 20 minutes, clear dressing applied following release of pressure. No hematoma formed, all vitals stable, and patient tolerated procedure well.
[2022-09-15 08:07] LABS: Glucose Point of Care 334 mg/dL (70-110)
[2022-09-15] MEDS: lisinopril 10 mg Tablet PO ×2 (08:23→09:39)
[2022-09-15] MEDS: metoprolol tartrate 50 mg Tablet 100 MG PO (08:23)
[2022-09-15] MEDS: insulin lispro 100 unit/1 mL SUBCUT ×5 (08:23→20:30)
[2022-09-15] MEDS: citalopram 20 mg Tablet 40 MG PO (08:23)
[2022-09-15] MEDS: cloNIDine 0.2 mg/24 hr Patch 1 PATCH TRANSDERMA ×2 (08:24→18:38)
--- NOTE | 2022-09-15 08:24 | P.PN_ITS ---
Subjective Subjective: Patient reports doing well denies any daily shortness of breath appears to be comfortable lying flat Does report of pleuritic chest pain on taking a deep breath. Also reports intermittent sharp pain which is spontaneous with no ongoing chest discomfort of pressure-like or aching sensation. Discussed with patient and his at bedside regarding management of his diabetes mellitus and diet No orthopnea PND ankle swelling. No fever chills or rigors Has remained hemodynamic stable. Remains on IV nitroglycerin for blood pressure management. Vitals/I&O/Wt Last Vital Signs Temp 99.1 F 09/15/22 04:00 Pulse 89 09/15/22 06:30 Resp 23 H 09/15/22 06:00 BP 116/84 09/15/22 06:30 Pulse Ox 90 09/15/22 06:30 O2 Del Method Room Air 09/15/22 04:00 09/14/22 09/15/22 09/15/22 22:59 06:59 14:59 Intake Total 1105.600 / 1105.600 Output Total 600 / 600 Balance -600 / -600 1105.600 / 505.600 Weight last 48 hrs Weight 277 lb 11.2 oz Weight 285 lb Physical Exam Const: COMMON NORMALS: no acute distress and patient oriented x3 GENERAL APPEARANCE: cooperative and comfortable Neck/C-Spine: COMMON NORMALS: full ROM and no JVD Chest: COMMONS NORMALS: normal inspection of the chest Resp: COMMON NORMALS: normal respiratory effort, No use of accessory muscles and clear to auscultation bilaterally AUSCULTATION: clear to auscultation bilaterally Cardio: COMMON NORMALS: no JVD, S1 normal heart sound present, S2 normal heart sound present, No gallops present (Cardio) and No murmurs present (Cardio) JUGULAR VENOUS DISTENTION: no JVD HEART SOUNDS: S1 normal heart sound present and S2 normal heart sound present Extremity: COMMON NORMALS: normal to inspection and no pedal edema Neuro: COMMON NORMALS: patient oriented x3 Data 09/14/22 Unknown 09/14/22 Unknown A&P Assessment and plan (1) ST elevation myocardial infarction (STEMI): * Admit to ICU. * Discontinue IV nitroglycerin for blood pressure management. * Continue aspirin 80 mg p.o. once a day. * Continue Brilinta 90 g p.o. twice daily for 12 months. * Will optimize KATTY inhibitor's beta-blockers high-dose statins in addition to DAPT therapy. * Will start Protonix 40 p.o. once a day for GI prophylaxis. * Require echocardiogram for LV function. * Regarding chest pain based on pleuritic nature will reassure patient at this time it could be related to mild pericarditis due to patient delayed presentation. (2) Hypertension: * Monitor blood pressure control. * Check serial Chem-7 correct potassium magnesium as needed * Would encourage structure of his program, low-sodium low-cholesterol diet. * Start lisinopril 10 g p.o. twice daily * Start clonazepam point milligram patch weekly * Continue telemetry monitoring (3) Diabetes: * Initial diabetes education. * Check HbA1c * Optimize medication may consider hospitalist consultation once HBA1c once he has returned * Add Lantus 20 qam, regular 5 units before meals Attestations Medical Necessity Statement*: Swapnil Narayan's hospital stay will require greater than 2 midnights for Coding Level of Care Code Acute Code for [facility] Diagnoses ST elevation myocardial infarction (STEMI) I21.3 Hypertension I10 Diabetes E11.9
[2022-09-15] MEDS: cloNIDine 0.1 mg/24 hr Patch 1 PATCH TRANSDERMA (09:11)
[2022-09-15] MEDS: aspirin 81 mg EC Tablet PO (09:11)
[2022-09-15] MEDS: ketorolac 30 mg/mL INJ 15 MG IVP ×2 (09:48→19:09)
[2022-09-15 10:02] LABS: Estmated Average Glucose 232; Hemoglobin A1C 9.7 % (4.0-6.0)
[2022-09-15 11:30] LABS: Glucose Point of Care 307 mg/dL (70-110)
[2022-09-15] MEDS: insulin glargine 100 units/1 mL 20 UNIT SUBCUT (12:14)
[2022-09-15 14:40] LABS: Glucose Point of Care 359 mg/dL (70-110)
[2022-09-15 14:40] LABS: Glucose Point of Care 378 mg/dL (70-110)
--- NOTE | 2022-09-15 14:43 | PC.NURSE ---
Shift note: patient c/o of chest pain, BP 180s in AM Dr. Arias gave order for PRN Morphine and added bp meds per JUN. chest pain not resolved Dr. Arias came to bedside gave v.o. for prn Toradol per JUN, pain was resolved. Glucose in the 300s orders received per JUN. Glucose still 300s, order recieved for 10 units humalog 1x now
[2022-09-15] MEDS: insulin lispro 100 unit/1 mL 10 UNIT SUBCUT (15:14)
[2022-09-15 17:08] LABS: Glucose Point of Care 287 mg/dL (70-110)
[2022-09-15] MEDS: lisinopril 20 mg Tablet PO ×2 (17:14→17:48)
--- NOTE | 2022-09-15 17:30 | PC.NURSE ---
BP 180s, chest pain back, Dr. Arias gave t.o. to increase lisinopril to 40 mg bid, and repeat previous dose of Toradol
[2022-09-15] MEDS: nitroglycerin drip 50 MG/250 ML PREMIX IV (18:34)
--- NOTE | 2022-09-15 18:49 | P.CONIM_ITS ---
Providers/Reason For Consult Consulting Physician/Specialty*: Dr. Olmos/cardiology Reason for Consult*: Poorly controlled diabetes with hyperglycemia. Attending Physician: Johnathon Olmos MD Primary Care Provider: Da Espinosa History of Present Illness History of Present Illness Swapnil Narayan is a 41 year old gentleman with hypertension, diabetes, HLD, obesity, being treated following STEMI, status post stent revascularization of mid LAD, with residual intermittent chest discomfort/pain, more pleuritic in nature, possible degree of mild pericarditis. With noted poorly controlled diabetes at the moment, hospitalist is asked to assist in management. He takes metformin 500 mg twice daily at home. He has been started on Lantus 20 units here as well as high-dose sliding scale. On consistent carbohydrate diet. Review of Systems Const: Denies: fever(s) Card: Reports: chest pain (Cramping/on inspiration) GI: Reports: other (Intermittently nausea, vomiting, diarrhea with metformin. Intolerant of Oz) : Reports: other (History of yeast infections with Jardiance) Medications/Allergies Home Medications Medication Instructions Recorded Confirmed Last Taken Type citalopram 40 mg tablet 40 mg PO DAILY 09/14/22 09/14/22 09/14/22 History clonidine HCl 0.2 mg tablet 0.2 mg PO BID 09/14/22 09/14/22 09/14/22 History hydrochlorothiazide 12.5 mg capsule 12.5 mg PO DAILY 09/14/22 09/14/22 09/14/22 History metformin 1,000 mg tablet 500 mg PO BID 09/14/22 09/14/22 Unknown History metoprolol tartrate 100 mg tablet 100 mg PO BID 09/14/22 09/14/22 09/14/22 History telmisartan 80 mg tablet 80 mg PO DAILY 09/14/22 09/14/22 09/14/22 History Allergies Allergy/AdvReac Type Severity Reaction Status Date / Time No Known Allergies Allergy Verified 09/15/22 09:13 Current Medications Generic Name Dose Route Start Last Admin Trade Name Freq PRN Reason Stop Dose Admin Aspirin 81 mg 09/15/22 09:00 09/15/22 09:11 Aspirin 81 Mg Ec Tablet PO 81 mg DAILY JAUN Administration Citalopram Hydrobromide 40 mg 09/15/22 09:00 09/15/22 08:23 Citalopram 20 Mg Tablet PO 40 mg DAILY JAUN Administration Clonidine HCl 1 patch 09/15/22 19:30 09/15/22 18:38 Clonidine 0.2 Mg/24 Hr Patch TRANSDERMA 1 patch Q7D JAUN Administration Nitroglycerin/Dextrose 50 mg in 250 mls @ 0 mls/hr 09/15/22 18:15 09/15/22 18:34 Nitroglycerin Drip IV 10 mcg/min .Q0M JAUN 3 mls/hr Administration Protocol Per Protocol Insulin Human Lispro 0 unit 09/14/22 23:06 09/15/22 17:15 Insulin Lispro 100 Unit/1 Ml SUBCUT 12 unit TIDWM JAUN Administration Protocol Insulin Human Lispro 5 unit 09/15/22 12:00 09/15/22 17:15 Insulin Lispro 100 Unit/1 Ml SUBCUT 5 unit TIDAC JAUN Administration Non-Formulary Medication 80 each 09/15/22 09:00 09/15/22 08:37 Non-Formulary Medication PO Not Given DAILY JAUN Ticagrelor 90 mg 09/15/22 07:00 09/15/22 17:15 Ticagrelor 90 Mg Tablet PO 90 mg BID JAUN Administration PFSH Acute PFSH: Medical History Diabetes Hypertension ST elevation myocardial infarction (STEMI) Social History Alcohol intake: never Vitals/I&O/Wt Last Vital Signs Temp 99.1 F 09/15/22 04:00 Pulse 102 H 09/15/22 18:30 Resp 22 H 09/15/22 18:30 BP 189/126 09/15/22 18:30 Pulse Ox 90 09/15/22 14:30 O2 Del Method Room Air 09/15/22 04:00 09/15/22 09/15/22 09/15/22 06:59 14:59 22:59 Intake Total 1105.600 / 1105.600 Balance 1105.600 / 505.600 Weight last 48 hrs Weight 125.963 kg Weight 129.274 kg Physical Exam Narrative: at bedside. Const: COMMON NORMALS: patient oriented x3 and alert GENERAL APPEARANCE: cooperative NUTRITIONAL APPEARANCE: obese ORIENTATION/CONSCIOUSNESS: Yes awake HENMT: COMMON NORMALS: oropharynx normal Neck/C-Spine: COMMON NORMALS: no JVD Resp: COMMON NORMALS: normal respiratory effort and clear to auscultation bilaterally AUSCULTATION: clear to auscultation bilaterally Cardio: COMMON NORMALS: no JVD, regular rhythm, S1 normal heart sound present, S2 normal heart sound present and No murmurs present (Cardio) RHYTHM: regular rhythm HEART SOUNDS: S1 normal heart sound present and S2 normal heart sound present GI: COMMON NORMALS: Normal to inspection, nondistended, normoactive bowel sounds present, Soft to palpation and non-tender PALPATION: Yes Soft to palpation Extremity: COMMON NORMALS: no joint enlargement and no pedal edema Neuro: COMMON NORMALS: patient oriented x3 and moves all extremities SENSORIUM/ORIENTATION: Yes alert Skin: COMMON NORMALS: no rashes or lesions noted GENERAL SKIN EXAM: no rashes or lesions noted Data 09/14/22 Unknown 09/14/22 Unknown A&P Assessment and plan (1) Diabetes: With persistent hyperglycemia. Blood glucose up into the 300s. Metformin has been increased to 850 mg. Continue. Discussed with him consideration of further increase of 1000 mg twice daily. Discussed with him possible limitation by GI symptoms. She does state that he gets occasional nausea and diarrhea with metformin, but states it may be regardless of whether he is on 500 twice daily or thousand twice daily. Discussed with him additional options, consideration of addition of medication. His A1c is 9.7. He states he did get it down to as low as 7 with Ozempic pr eviously but had to discontinue it due to intolerance with GI symptoms. Discussed with him given his A1c and seems prior success he may be able to bring his A1c down again without continuation of insulin. The other option would be to start insulin at discharge. As per discussion with cardiology continue insulin for now while in the hospital. For afterwards discussed with him consideration of alternative GLP 1 receptor agonist which may help with weight loss. His and him would like to try Trulicity as his had previously taken it and had a good success with it. Additionally discussed risks and possible benefits of dapagliflozin. He states that he did take it previously but it was discontinued due to limited benefit for his diabetes. Discussed with him recent findings with cardiovascular benefit, given his cardiac disease he may achieve benefit for this even if having limited benefit for his diabetes. He did not have any issues with Farxiga in the past. Does state that he used to get yeast infections with Jardiance. For now continue long-acting insulin, sliding scale, consistent carbohydrate diet. Monitor blood glucose. Glucose appears to be responding, noted to 287. At discharge she would like to continue with increased dose of metformin, and add dapagliflozin and dulaglutide. Depending on blood glucose may need to adjust his Lantus dose possibly downward. Received 20 units today. (2) ST elevation myocardial infarction (STEMI): Status post revascularization. Continue medications as per cardiology, continue antiplatelets, statin, KATTY inhibitor, beta-arlene, optimization of risk factors including hypertension, diabetes. With some continued chest discomfort on inspiration, possibly component of myopericarditis. Received cautious doses of Toradol. With cramping component discussed with him and his symptom relief with mu scle relaxant as needed. Follow-up CBC requested. (3) Hypertension: Lisinopril dose was increased. Continue metoprolol. Clonidine patch. Plan Obesity: As above, on metformin. To restart Farxiga with addition of Trulicity at discharge. Follow-up with primary provider. Discussed with cardiology. Cardiology documentation reviewed. Mild transaminitis: Follow-up CMP requested. Consult Attestations Medical Necessity Statement: Continue admission for assessment management following STEMI. Optimization of control diabetes, hypertension. Diagnoses Diabetes E11.9 ST elevation myocardial infarction (STEMI) I21.3 Hypertension I10
[2022-09-15] MEDS: metoprolol succinate ER (24 HR) 25 mg Tablet PO (20:08)
[2022-09-15] MEDS: atorvastatin 40 mg Tablet PO (20:09)
[2022-09-15 20:31] LABS: Glucose Point of Care 308 mg/dL (70-110)
[2022-09-15] MEDS: acetaminophen 325 mg Tablet 650 MG PO (21:29)
[2022-09-16] VITALS (60 sets, daily range): BP systolic 131–212; BP diastolic 82–115; PULSE 76–107; RESP 12–24; TEMP 36.5–36.9; O2SAT 82–98
[2022-09-16 03:52] LABS: Basophils % 0.3 %; Eosinophils # 0.1 10^3/uL (0.0-0.8); Eosinophils % 0.8 %; Hematocrit 40.8 % (42.0-52.0); Hemoglobin 13.4 g/dL (11.7-16.6); Lymphocytes # 2.7 10^3/uL (0.8-4.8); Lymphocytes % 22.1 %; Mean Corpuscular HGB Conc 32.8 g/dL (30.0-36.0); Mean Corpuscular Hemoglobin 27.6 pg (28.0-34.0); Mean Corpuscular Volume 84.1 fl (80-94); Mean Platelet Volume 11.4 fL (7.4-10.4); Monocytes # 1.3 10^3/uL (0.2-0.9); Monocytes % 10.8 %; Neutrophils # 7.89 10^3/uL (1.8-7.7); Neutrophils % 65.4 %; Nucleated Red Blood Cells % 0 %; Platelet Count 236 10^3/cmm (130-400); Red Blood Count 4.85 10^6/uL (4.1-5.3); Red Cell Distribution Width 13.1 % (12.1-15.1); White Blood Count 12.1 10^3/uL (4.0-10.0)
[2022-09-16 04:14] LABS: Alanine Aminotransferase 18 U/L (0-41); Albumin Level 3.3 g/dL (3.5-5.2); Alkaline Phosphatase 82 U/L (40-130); Blood Urea Nitrogen 20 mg/dL (6-20); Carbon Dioxide 25 mmol/L (22-29); Chloride 98 mmol/L (98-107); Globulin 3.6 g/dL (1.3-4.6); Glucose 190 mg/dL (65-115); Osmolality Calculated 286 mOsm/kg (285-295); Sodium 134 mmol/L (136-145); Total Protein 6.9 g/dL (6.6-8.7)
[2022-09-16 04:18] LABS: Anion Gap 14.3 (5-19); Aspartate Amino Transferase 31 U/L (0-40); Potassium 3.3 mmol/L (3.5-5.1)
[2022-09-16] MEDS: insulin lispro 100 unit/1 mL SUBCUT ×7 (06:27→20:46)
[2022-09-16 06:32] LABS: Glucose Point of Care 258 mg/dL (70-110)
[2022-09-16 07:59] LABS: Glucose Point of Care 256 mg/dL (70-110)
[2022-09-16] MEDS: citalopram 20 mg Tablet 40 MG PO (08:56)
[2022-09-16] MEDS: ticagrelor 90 mg Tablet PO ×2 (08:56→17:16)
[2022-09-16] MEDS: aspirin 81 mg EC Tablet PO (08:56)
[2022-09-16] MEDS: lisinopril 20 mg Tablet 40 MG PO ×2 (08:57→17:16)
[2022-09-16] MEDS: metoprolol succinate ER (24 HR) 25 mg Tablet PO (08:57)
[2022-09-16] MEDS: insulin glargine 100 units/1 mL 20 UNIT SUBCUT (09:06)
[2022-09-16] MEDS: nitroglycerin drip 50 MG/250 ML PREMIX 28.5 MG IV (09:08)
--- NOTE | 2022-09-16 10:59 | PC.NURSE ---
Dr. Laguna at bedside, gave order for metoprolol and Hadralyzine per JUN, goal to titrate Nitro off
[2022-09-16 11:15] LABS: Glucose Point of Care 261 mg/dL (70-110)
[2022-09-16] MEDS: metoprolol succinate ER (24 HR) 100 mg Tablet 75 MG PO (11:18)
[2022-09-16] MEDS: hyDRALAzine 50 mg Tablet PO ×2 (11:18→14:55)
[2022-09-16] MEDS: hydroCHLOROthiazide 25 mg Tablet PO (13:52)
[2022-09-16 16:21] LABS: Glucose Point of Care 231 mg/dL (70-110)
[2022-09-16] MEDS: ketorolac 30 mg/mL INJ 15 MG IVP (17:15)
--- NOTE | 2022-09-16 17:39 | PM.PN ---
Subjective Subjective: Patient has on and off pleuritic chest pain. Blood pressure is still uncontrolled. Vitals/I&O/Wt Last Vital Signs Temp 98.4 F 09/16/22 04:00 Pulse 84 09/16/22 17:00 Resp 22 H 09/16/22 17:00 BP 170/106 09/16/22 17:00 Pulse Ox 94 09/16/22 16:30 O2 Del Method Room Air 09/16/22 04:00 09/16/22 09/16/22 09/16/22 06:59 14:59 22:59 Intake Total 92.850 / 578.400 131 / 131 Balance 92.850 / 578.400 131 / 131 Weight last 48 hrs Weight 277 lb 11.2 oz Weight 285 lb Physical Exam Const: COMMON NORMALS: no acute distress and patient oriented x3 GENERAL APPEARANCE: cooperative and comfortable Neck/C-Spine: COMMON NORMALS: full ROM and no JVD Chest: COMMONS NORMALS: normal inspection of the chest Resp: COMMON NORMALS: normal respiratory effort, No use of accessory muscles and clear to auscultation bilaterally AUSCULTATION: clear to auscultation bilaterally Cardio: COMMON NORMALS: no JVD, S1 normal heart sound present, S2 normal heart sound present, No gallops present (Cardio) and No murmurs present (Cardio) JUGULAR VENOUS DISTENTION: no JVD HEART SOUNDS: S1 normal heart sound present and S2 normal heart sound present Extremity: COMMON NORMALS: normal to inspection and no pedal edema Neuro: COMMON NORMALS: patient oriented x3 Data 09/16/22 02:31 09/16/22 02:31 A&P Assessment and plan (1) ST elevation myocardial infarction (STEMI): Continue dual antiplatelet therapy with aspirin and Brilinta for atleast 1 year Chest pain is pleuritic and likely secondary to post VA pericarditis. Toradol as needed High intenstiy statin therpy. Continue lisinopril. We will uptitrate metoprolol to 100mg daily. (2) Hypertension: Uncontrolled. We will uptitrate Metoprolol to 100mg daily. We will also add HCTZ 25 mg daily and hydralazine 50mg tid. Will monitor blood pressure today. (3) Diabetes: Medicine team consulted. Appreciate recommendations. Plan Patient will be observed on tele today with uptitration of bp meds. If stable by tomorrow, plan for discharge. Attestations Medical Necessity Statement*: Care expected to cross 2 midnights. Coding Level of Care Code Acute Code for [facility] Diagnoses ST elevation myocardial infarction (STEMI) I21.3 Hypertension I10 Diabetes E11.9
--- NOTE | 2022-09-16 20:05 | PC.NURSE ---
Patient in room, awake and oriented. In good spirits with at bedside, patients Nitroglycerin drip running at 40 mcg on arrival to shift. Infusion titration updated in JUN.
[2022-09-16] MEDS: atorvastatin 40 mg Tablet PO (20:45)
[2022-09-16] MEDS: hyDRALAzine 50 mg Tablet 100 MG PO (20:45)
[2022-09-16 20:49] LABS: Glucose Point of Care 288 mg/dL (70-110)
--- NOTE | 2022-09-16 20:51 | P.PN_ITS ---
Subjective Subjective: He reports overall is doing well. Intermittent cramping anterior lower chest. Vitals/I&O/Wt Last Vital Signs Temp 98.4 F 09/16/22 04:00 Pulse 93 09/16/22 18:00 Resp 24 H 09/16/22 18:00 BP 156/90 09/16/22 18:00 Pulse Ox 94 09/16/22 16:30 O2 Del Method Room Air 09/16/22 04:00 09/16/22 09/16/22 09/16/22 06:59 14:59 22:59 Intake Total 92.850 / 578.400 131 / 131 180 / 311 Balance 92.850 / 578.400 131 / 131 180 / 311 Weight last 48 hrs Weight 125.963 kg Physical Exam Narrative: at bedside. Const: COMMON NORMALS: patient oriented x3 and alert GENERAL APPEARANCE: cooperative NUTRITIONAL APPEARANCE: obese ORIENTATION/CONSCIOUSNESS: Yes awake HENMT: COMMON NORMALS: oropharynx normal Neck/C-Spine: COMMON NORMALS: no JVD Resp: COMMON NORMALS: normal respiratory effort and clear to auscultation bilaterally AUSCULTATION: clear to auscultation bilaterally Cardio: COMMON NORMALS: no JVD, regular rhythm, S1 normal heart sound present, S2 normal heart sound present and No murmurs present (Cardio) RHYTHM: regular rhythm HEART SOUNDS: S1 normal heart sound present and S2 normal heart sound present GI: COMMON NORMALS: Normal to inspection, nondistended, normoactive bowel cheryl nds present, Soft to palpation and non-tender PALPATION: Yes Soft to palp ation Extremity: COMMON NORMALS: no joint enlargement and no pedal edema Neuro: COMMON NORMALS: patient oriented x3 and moves all extremities SENSORIUM/ORIENTATION: Yes alert Skin: COMMON NORMALS: no rashes or lesions noted GENERAL SKIN EXAM: no rashes or lesions noted Data 09/16/22 02:31 09/16/22 02:31 A&P Assessment and plan (1) Diabetes: Blood glucose is improving, down to 190 today. Continue current regimen. Increased dose metformin, Farxiga and Trulicity at discharge. Continue to monitor blood glucose with insulin while in the hospital. (2) ST elevation myocardial infarction (STEMI): Status post revascularization. Continue medications as per cardiology, continue antiplatelets, statin, KATTY inhibitor, beta-arlene, optimization of risk factors including hypertension, diabetes. Toradol given by cardiology for pericarditis With cramping component discussed with him and his symptom relief with muscle relaxant as needed. Follow-up CBC requested. (3) Hypertension: Lisinopril dose was increased. Metoprolol dose is being increased. HCTZ and hydralazine added. Clonidine patch. Plan Hypokalemia: Replace. Check magnesium. Obesity: As above, on metformin. To restart Farxiga with addition of Trulicity at discharge. Follow-up with primary provider. Discussed with cardiology. Cardiology documentation reviewed. Mild transaminitis: Follow-up CMP requested. Cardiology documentation noted. Attestations Medical Necessity Statement*: Continue hospitalization for post STEMI care. Diagnoses Diabetes E11.9 ST elevation myocardial infarction (STEMI) I21.3 Hypertension I10
[2022-09-16] MEDS: metformin 850 mg Tablet PO (21:53)
[2022-09-16] MEDS: potassium chloride ER 20 mEq Tablet PO (21:53)
[2022-09-17] VITALS (36 sets, daily range): BP systolic 144–206; BP diastolic 73–121; PULSE 73–93; RESP 9–32; TEMP 36.8; O2SAT 95
[2022-09-17] MEDS: acetaminophen 325 mg Tablet 650 MG PO (00:08)
--- NOTE | 2022-09-17 00:46 | ECG_ITS ---
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 Measurements Intervals [place] Rate: 89 P: 56 [place]: 164 QRS: 10 QRSD: 106 T: 60 QT: 372 QTc: 455 Interpretive Statements SINUS RHYTHM ST ELEVATION, CONSIDER ANTERIOR INJURY [MARKED ST ELEVATION W/O NORMALLY INFLECTED T-WAVE IN V2-V5] ACUTE IL Compared to ECG 09/15/2022 01:06:30 ST (T wave) deviation now present Myocardial infarct finding still present Electronically Signed On 09-17-2022 8:20:14 CDT by Adelaide Mcclain M.D. [id number]
[2022-09-17] MEDS: morphine 4 mg/mL SDV 1 mL 2 MG IVP (00:58)
[2022-09-17 03:07] LABS: Basophils # 0.1 10^3/uL (0.0-0.1); Basophils % 0.4 %; Eosinophils # 0.2 10^3/uL (0.0-0.8); Eosinophils % 1.8 %; Hematocrit 40.2 % (42.0-52.0); Hemoglobin 13.2 g/dL (11.7-16.6); Lymphocytes # 2.8 10^3/uL (0.8-4.8); Lymphocytes % 24.1 %; Mean Corpuscular HGB Conc 32.8 g/dL (30.0-36.0); Mean Corpuscular Hemoglobin 27.2 pg (28.0-34.0); Mean Corpuscular Volume 82.9 fl (80-94); Mean Platelet Volume 11.3 fL (7.4-10.4); Monocytes # 1.2 10^3/uL (0.2-0.9); Monocytes % 10.2 %; Neutrophils # 7.18 10^3/uL (1.8-7.7); Neutrophils % 62.9 %; Nucleated Red Blood Cells % 0 %; Platelet Count 279 10^3/cmm (130-400); Red Blood Count 4.85 10^6/uL (4.1-5.3); Red Cell Distribution Width 12.7 % (12.1-15.1); White Blood Count 11.4 10^3/uL (4.0-10.0)
[2022-09-17 03:28] LABS: Blood Urea Nitrogen 16 mg/dL (6-20); Calcium 8.4 mg/dL (8.5-10.5); Carbon Dioxide 23 mmol/L (22-29); Chloride 100 mmol/L (98-107); Glucose 211 mg/dL (65-115); Magnesium 1.9 mg/dL (1.7-2.3); Osmolality Calculated 281 mOsm/kg (285-295); Sodium 132 mmol/L (136-145)
[2022-09-17 03:32] LABS: Anion Gap 12.8 (5-19); Potassium 3.8 mmol/L (3.5-5.1)
[2022-09-17] MEDS: nitroglycerin drip 50 MG/250 ML PREMIX 15 MG IV (05:49)
[2022-09-17 06:20] LABS: Glucose Point of Care 243 mg/dL (70-110)
[2022-09-17] MEDS: insulin lispro 100 unit/1 mL SUBCUT ×4 (06:20→12:24)
[2022-09-17 07:45] LABS: Glucose Point of Care 195 mg/dL (70-110)
[2022-09-17] MEDS: metformin 850 mg Tablet PO (07:55)
[2022-09-17] MEDS: aspirin 81 mg EC Tablet PO (08:17)
[2022-09-17] MEDS: lisinopril 20 mg Tablet 40 MG PO (08:17)
[2022-09-17] MEDS: metoprolol succinate ER (24 HR) 100 mg Tablet PO (08:17)
[2022-09-17] MEDS: hydroCHLOROthiazide 25 mg Tablet PO (08:17)
[2022-09-17] MEDS: citalopram 20 mg Tablet 40 MG PO (08:17)
[2022-09-17] MEDS: ticagrelor 90 mg Tablet PO (08:17)
[2022-09-17] MEDS: hyDRALAzine 50 mg Tablet 100 MG PO ×2 (08:18→14:48)
[2022-09-17] MEDS: insulin glargine 100 units/1 mL 20 UNIT SUBCUT (08:40)
[2022-09-17] MEDS: cloNIDine 0.1 mg Tablet 0.2 MG PO (10:02)
[2022-09-17 12:31] LABS: Glucose Point of Care 197 mg/dL (70-110)
--- NOTE | 2022-09-17 12:35 | CT_ITS ---
WS: [id number] CT CHEST ANGIOGRAPHY WITH REFORMATS HISTORY: Chest pain. TECHNIQUE: Contiguous axial images are obtained through the chest during arterial injection of intrav enous contrast. Images are reconstructed to evaluate the pulmonary arteries. MIP imaging also reviewe d. All CT scans at [facility] use at least one of these dose optimization techniques: automat ed exposure control; mA and/or kV adjustment per patient size (includes targeted exams where dose is matched to clinical indication); or iterative reconstruction. CONTRAST: Omnipaque 350; 100 mL IV. DLP: 577.82 mGy.cm COMPARISON: 06/26/2020 Adequate opacification of the pulmonary arteries. No filling defects. Normal size pulmonary artery. S ignificant motion artifact centrally. Marked enlargement of the LEFT heart. No RIGHT heart strain. No rmal size aorta. No mediastinal or hilar adenopathy. Patchy opacifications and groundglass attenuation in the lower lung blackmon. Partially calcified nodul e with a maximum diameter of 1.5 cm RIGHT middle lobe. Additional stable 3 mm subpleural nodule RIGHT middle lobe. No mass like consolidation. Hepatic steatosis. No adrenal mass. Visualized gallbladder is negative. No osteoblastic or osteolytic bone disease. CT/CT angio chest PE protcl [id number] IMPRESSION: 1. No pulmonary embolism. 2. Minimal patchy opacifications at the lung bases and stable partially calcif ied nodule in the RIGHT middle lobe. Much improved since 06/26/2020. Opacificatio ns would probably improve with better inspiration. 3. Marked LEFT heart enlargement which is new since 06/26/2020. Recommend mckayla luation by cardiology.
[2022-09-17] MEDS: iohexol 350 mg/mL 500 mL Btl (per mL) IV (13:47)
--- NOTE | 2022-09-17 15:23 | PM.DCS ---
Discharge Providers Date of Admission: 09/14/22 21: Date of Discharge: September 17, 2022 Attending Provider at Admission: Johnathon Olmos MD Attending Provider at Discharge: Johnathon Olmos MD Primary Care Provider: Da Espinosa Diagnoses at Discharge Discharge Diagnosis (1) Diabetes: Status: Acute (2) ST elevation myocardial infarction (STEMI): Status: Inactive (3) Hypertension: Status: Acute Reason for Visit Reason for Visit: TN Brief History: 42-year-old man with past medical history of hypertension who presented to hospital with several days of on and off chest pain. On day of presentation it was worse. In the emergency room he was found to have ST elevation TN in anterior leads. 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 Hospital Course Hospital Course Patient underwent successful revascularization of LAD with PCI. Patient had pleuritic chest pain postprocedure for which Toradol was given and helped. Medicine team was on board for diabetes management. Echo showed moderately reduced LV systolic function. Patient stayed stable in the hospital and was discharged home on dual antiplatelet therapy with aspirin and Brilinta. Physical Exam Narrative: GENERAL: Patient is alert, awake and oriented x3. [] NECK: No jugular vein distension. [] HEENT: No cyanosis. No icterus. No pallor. [] HEART: Regular S1 and S2. No murmur, rub or gallop. [] LUNGS: Clear to auscultate bilaterally. [] ABDOMEN: Soft, nontender and nondistended. Positive bowel sounds. No guarding, rebound or tenderness. [] CENTRAL NERVOUS SYSTEM: Grossly nonfocal. [] EXTREMITIES: Lower extremities with 1+ edema bilaterally. Discharge Data Studies Completed and Pending Completed Studies During Hospitalization Category Date Time Status CTA chest [CT angio chest PE protcl [id number]] Routine Cat Scan 09/17/22 12:35 Completed HYDROLOGY TECHNICIAN request for service Stat Exams 09/14/22 19:36 Completed XR chest 1V portable [id number] Stat Exams 09/14/22 19:29 Completed CV. echo complete* [id number] Stat Ultrasound 09/14/22 21:07 Completed Pending at discharge Category Date Time Status Basic Metabolic Panel AM LABS Lab 09/18/22 04:00 Ordered Basic Metabolic Panel AM LABS Lab 09/19/22 04:00 Ordered Complete Blood Count w/Auto AM LABS Lab 09/18/22 04:00 Ordered US renal doppler [CV renal doppler [id number]] Routine Ultrasound 09/17/22 10:07 Ordered Radiology Impressions Chest X-Ray 09/14/22 19:29 IMPRESSION: Small amount of linear atelectasis versus scarring left lung base and without acute findings otherwise. Chest CTA 09/17/22 12:35 IMPRESSION: 1. No pulmonary embolism. 2. Minimal patchy opacifications at the lung bases and stable partially calcified nodule in the RIGHT middle lobe. Much improved since 06/26/2020. Opacifications would probably improve with better inspiration. 3. Marked LEFT heart enlargement which is new since 06/26/2020. Recommend evaluation by cardiology. Laboratory Results WBC 11.4 10^3/uL (4.0-10.0) H 09/17/22 02:43 RBC 4.85 10^6/uL (4.1-5.3) 09/17/22 02:43 Hgb 13.2 g/dL (11.7-16.6) 09/17/22 02:43 Hct 40.2 % (42.0-52.0) L 09/17/22 02:43 MCV 82.9 fl (80-94) 09/17/22 02:43 MCH 27.2 pg (28.0-34.0) L 09/17/22 02:43 MCHC 32.8 g/dL (30.0-36.0) 09/17/22 02:43 RDW 12.7 % (12.1-15.1) 09/17/22 02:43 Plt Count 279 10^3/cmm (130-400) 09/17/22 02:43 MPV 11.3 fL (7.4-10.4) H 09/17/22 02:43 Neut % (Auto) 62.9 % 09/17/22 02:43 Lymph % (Auto) 24.1 % 09/17/22 02:43 [place] % (Auto) 10.2 % 09/17/22 02:43 Eos % (Auto) 1.8 % 09/17/22 02:43 Baso % (Auto) 0.4 % 09/17/22 02:43 Neut # (Auto) 7.18 10^3/uL (1.8-7.7) 09/17/22 02:43 Lymph # (Auto) 2.8 10^3/uL (0.8-4.8) 09/17/22 02:43 [place] # (Auto) 1.2 10^3/uL (0.2-0.9) H 09/17/22 02:43 Eos # (Auto) 0.2 10^3/uL (0.0-0.8) 09/17/22 02:43 Baso # (Auto) 0.1 10^3/uL (0.0-0.1) 09/17/22 02:43 Nucleated RBC % (auto) 0 % 09/17/22 02:43 Nucleated RBCs # 0.0 /100WBC 09/17/22 02:43 APTT 28.4 SECONDS (23.9-36.7) 09/15/22 02:30 D-Dimer 0.90 ug/mIFEU (0-0.59) H 09/17/22 10:43 Sodium 132 mmol/L (136-145) L 09/17/22 02:43 Potassium 3.8 mmol/L (3.5-5.1) 09/17/22 02:43 Chloride 100 mmol/L (98-107) 09/17/22 02:43 Carbon Dioxide 23 mmol/L (22-29) 09/17/22 02:43 Anion Gap 12.8 (5-19) 09/17/22 02:43 BUN 16 mg/dL (6-20) 09/17/22 02:43 Creatinine 0.6 mg/dL (0.7-1.2) L 09/17/22 02:43 GFR Calculation 147.0 mL/min (90-130) H 09/17/22 02:43 Glucose 211 mg/dL (65-115) H 09/17/22 02:43 POC Glucose 197 mg/dL (70-110) H 09/17/22 12:17 Estimat Average Glucose 232 09/14/22 Unknown Hemoglobin A1c 9.7 % (4.0-6.0) H 09/14/22 Unknown Calculated Osmolality 281 mOsm/kg (285-295) L 09/17/22 02:43 Calcium 8.4 mg/dL (8.5-10.5) L 09/17/22 02:43 Magnesium 1.9 mg/dL (1.7-2.3) 09/17/22 02:43 Total Bilirubin 1.0 mg/dL (0.15-1.2) 09/16/22 02:31 AST 31 U/L (0-40) 09/16/22 02:31 ALT 18 U/L (0-41) 09/16/22 02:31 Alkaline Phosphatase 82 U/L (40-130) 09/16/22 02:31 Troponin T Baseline 657 ng/L (0-15) H* 09/14/22 Unknown Troponin T 120 Minute 1374 ng/L (0-15) H 09/14/22 22:07 Delta Troponin T 717 ABS# (0-10) H* 09/14/22 22:07 Troponin T Hi Sens 6Hr 1265 ng/L (0-15) H 09/15/22 01:00 Troponin T Hi Sens 6Hr Delta 608 ng/L (0-12) H* 09/15/22 01:00 Total Protein 6.9 g/dL (6.6-8.7) 09/16/22 02:31 Albumin 3.3 g/dL (3.5-5.2) L 09/16/22 02:31 Globulin 3.6 g/dL (1.3-4.6) 09/16/22 02:31 Vitals Last Vital Signs Temp 98.2 F 09/17/22 04:00 Pulse 82 09/17/22 12:30 Resp 19 H 09/17/22 12:30 BP 150/110 09/17/22 12:30 Pulse Ox 95 09/17/22 00:58 O2 Del Method Room Air 09/16/22 04:00 Discharge Plan Discharge Patient Disposition: Home Condition: Stable Prescriptions: New dapagliflozin 10 mg tablet 10 mg PO DAILY Qty: 90 0RF dulaglutide 0.75 mg/0.5 mL pen injector 0.75 mg SUBCUT .Weekly Qty: 2 0RF atorvastatin 40 mg Tablet 40 mg PO BEDTIME Qty: 90 3RF metoprolol succinate 100 mg Tablet Extended Release 24 Hr 100 mg PO DAILY Qty: 90 2RF aspirin 81 mg Tablet,Delayed Release (Dr/Ec) 81 mg PO DAILY Qty: 90 3RF hydrochlorothiazide 25 mg Tablet 25 mg PO DAILY Qty: 90 2RF Brilinta 90 mg Tablet 90 mg PO BID Qty: 120 3RF Continued citalopram 40 mg tablet 40 mg PO DAILY clonidine HCl 0.2 mg tablet 0.2 mg PO BID Changed metformin 1,000 mg tablet 1,000 mg PO BID Qty: 180 0RF Discontinued telmisartan 80 mg tablet 80 mg PO DAILY hydrochlorothiazide 12.5 mg capsule 12.5 mg PO DAILY metoprolol tartrate 100 mg tablet 100 mg PO BID No Action hydralazine 50 mg tablet See Rx Instructions PO TID Rx Instructions: 150mg in AM, 100mg at noon, 100 mg in evening orally three times daily; Discharge Orders: Discharge Order (Routine); Ordered 09/17/22 Ordered By: Richar Martinez Referrals: Richar Martinez M.D [Physician] - 2 months Aretha Fleming FNP [Nurse Practitioner] - 4-7 days (appointment date,Thursday at time of 10:30 am will schedule for cardiology aappointment at time of appointment with physican) Da Espinosa [Primary Care Provider] - 4-7 days (appointment scheduled: Thursday at time of 09:00 am will reschedule this appointment ) Discharge Diet: Cardiac and Diabetic Discharge Activity: Increase activity as tolerated Patient Instructions: Metformin (By mouth), Dapagliflozin (By mouth) (Farxiga), Dapagliflozin (By mouth), Dulaglutide (By injection) (Trulicity), Dulaglutide (By injection), Coronary Angioplasty (DC), Chest Pain Stoplight, Post Angiogram Home Care Instructions, Post Heart Attack Stoplight Activity Restrictions/Additional Instructions: Continue to monitor blood glucose at least 3 times daily. Write down values to bring to her appointment. As per discussion your dose of metformin is increased, we are increasing and to 1000 mg twice daily. In case you start having GI symptoms, nausea vomiting or diarrhea, those may have to be decreased back down. You are also started on dapagliflozin (Farxiga) and dulaglutide (Trulicity) as per discussion. With the risk of ketoacidosis with this medication in case you experience any weakness, dehydration, nausea vomiting, abdominal pain, or low blood pressure, even in absence of very high glucose, please hold the medication and seek medical attention. Additionally with the risks of urinary tract infection, seek medical attention in case of any urinary discomfort or other symptoms. Similarly with rare but potentially serious adverse effect of perineal infection or gangrene in case of any pain or tenderness, redness or swelling in the area between anus and genitals stopped medication and seek medical attention immediately. With Trulicity watch out for any abdominal pain due reported cases of pancreatitis, in case abdominal pain, nausea and vomiting, symptoms which may represent pancreatitis, stop use and seek medical attention. Monitor your glucose as mentioned to make sure you are also not developing hypoglycemia (low blood sugar). Follow-up with your primary doctor. Discharge Attestations Time Spent in Discharge Care*: greater than 30 min Quality Metrics Clinical Quality Measures [ Acute Myocardial Infaction { Clinical Trial Participant: No; Contraindication to aspirin: None; Aspirin prescribed; Contraindication to statin: None; Statin prescribed; Contraindication to PCI: None; PCI performed;}. No reported AMI, CVA or VTE this stay] Coding Level of Care Code Acute Code for [facility] Fwd Diagnoses Diabetes E11.9 ST elevation myocardial infarction (STEMI) I21.3 Hypertension I10
--- NOTE | 2022-09-17 15:51 | P.PN_ITS ---
Subjective Subjective: Reports he is doing well. He is dressed and awaiting discharge home. Chest discomfort symptoms have been resolving and almost gone apart from occasional brief twinge in the center of his chest. Vitals/I&O/Wt Last Vital Signs Temp 98.2 F 09/17/22 15:24 Pulse 78 09/17/22 15:30 Resp 23 H 09/17/22 15:30 BP 156/85 09/17/22 15:30 Pulse Ox 95 09/17/22 15:24 O2 Del Method Room Air 09/16/22 04:00 09/17/22 09/17/22 09/17/22 06:59 14:59 22:59 Intake Total 433.75 / 744.75 240 / 240 Balance 433.75 / 744.75 240 / 240 Physical Exam Narrative: at bedside. Const: COMMON NORMALS: patient oriented x3 and alert GENERAL APPEARANCE: cooperative NUTRITIONAL APPEARANCE: obese ORIENTATION/CONSCIOUSNESS: Yes awake OTHER: Pleasant, conversant, in good spirits. HENMT: COMMON NORMALS: oropharynx normal Neck/C-Spine: COMMON NORMALS: no JVD Resp: COMMON NORMALS: normal respiratory effort and clear to auscultation bilaterally AUSCULTATION: clear to auscultation bilaterally Cardio: COMMON NORMALS: no JVD, regular rhythm, S1 normal heart sound present, S2 normal heart sound present and No murmurs present (Cardio) RHYTHM: regular rhythm HEART SOUNDS: S1 normal heart sound present and S2 normal heart sound present GI: COMMON NORMALS: Normal to inspection, nondistended, normoactive bowel sounds present, Soft to palpation and non-tender PALPATION: Yes Soft to palpation Extremity: COMMON NORMALS: no joint enlargement and no pedal edema Neuro: COMMON NORMALS: patient oriented x3 and moves all extremities SENSORIUM/ORIENTATION: Yes alert Skin: COMMON NORMALS: no rashes or lesions noted GENERAL SKIN EXAM: no rashes or lesions noted Data 09/17/22 02:43 09/17/22 02:43 A&P Assessment and plan (1) Diabetes: As he is discharging home, discussed with him again regarding continuing glucose monitoring and changes in his medications. We discussed increasing dose of metformin to 1000 twice daily. Discussed addition of Debra Valdovinos. Risks discussed. He denies any personal or family history of thyroid cancer. Discu ssed potential serum adverse effects to watch out for and seek attention. Additional instructions given with DC packet. (2) ST elevation myocardial infarction (STEMI): Status post revascularization. Continue medications as per cardiology, continue antiplatelets, aspirin and Brilinta for at least 1 year, statin, KATTY inhibitor, beta-arlene, optimization of risk factors including hypertension, diabetes. Resolving cramping/pleuritic chest pain. Nearly gone apart from occasional brief discomfort. He knows to seek medical attention in case of worsening symptoms. D-dimer obtained today as well due to pleuritic nature, abnormal, assessed by CTA which was without PE. (3) Hypertension: Lisinopril dose was increased. Metoprolol dose was increased. HCTZ and hydralazine added. Clonidine patch. Plan Hypokalemia: Was replaced, magnesium checked and was 1.9. Obesity: As above, on metformin. To restart Farxiga with addition of Trulicity at discharge. Follow-up with primary provider. Mild transaminitis: Resolved Discussed with cardiology. Cardiology documentation reviewed. Attestations Medical Necessity Statement*: Returning home. Diagnoses Diabetes E11.9 ST elevation myocardial infarction (STEMI) I21.3 Hypertension I10
--- NOTE | 2022-09-17 16:22 | PC.NURSE ---
Patient received discharge orders, all safety measures are met, All IV's removed. Discharge instructions given to patient and , all activity restrictions given to patient. Medications sent to preferred pharmacy. All personal belongings sent with patient
--- NOTE | 2022-09-17 16:46 | PC.NURSE ---
Patient left to main exit at 1645 with and staff.
== END 2022-09-17 16:45 | disposition home or self-care (01) | DRG 247 ==
LOC: ER 19:58 → ICU 21:26
PROVIDERS: Internal Medicine; Admitting Provider Internal Medicine Cardiovascular Disease; Emergency Provider Emergency Medicine; PCP Physician Assistant; Visit Provider Internal Medicine Cardiovascular Disease
PROC: 027034Z Dilation of Coronary Artery, One Artery with Drug-eluting Intraluminal Device, Percutaneous Approach (ICD-10-PCS; principal; 2022-09-14 20:00)
PROC: 027034Z Dilation of Coronary Artery, One Artery with Drug-eluting Intraluminal Device, Percutaneous Approach (ICD-10-PCS; 2022-09-14 20:00)
DX: I21.02 ST elevation (STEMI) myocardial infarction involving left anterior descending coronary artery (principal); E11.65 Type 2 diabetes mellitus with hyperglycemia; Z79.84 Long term (current) use of oral hypoglycemic drugs; Z79.85 Long-term (current) use of injectable non-insulin antidiabetic drugs; I10 Essential (primary) hypertension; E87.6 Hypokalemia; E66.9 Obesity, unspecified; Z68.39 Body mass index [BMI] 39.0-39.9, adult; I25.10 Atherosclerotic heart disease of native coronary artery without angina pectoris; E78.5 Hyperlipidemia, unspecified
CPT/HCPCS: 36415; 36416; 71045; 71275; 80048; 80053; 82962; 83036; 83735; 84484; 85025; 85347; 85378; 85730; 92978; 93005; 93306; 93458; 96361; 96365; 96367; 96372; 96374; 96376; 99152; 99153; 99291; C1725; C1753; C1769; C1874; C1887; C1894; C9600; J0153; J0360; J1200; J1644; J1815; J1885; J2250; J2270; J3010; J3490; J7030; J7040; J7050; Q9967

== ENCOUNTER → 2022-09-26 11:10 | Outpatient (BNVA) | payer BC, SELFPAY | PROVIDERS: PCP Physician Assistant; Visit Provider Nurse Practitioner Family | DX: I25.10 Atherosclerotic heart disease of native coronary artery without angina pectoris (principal) | CPT/HCPCS: 80048 ==

== ENCOUNTER 2024-02-20 11:16 | Emergency (ER) | payer BC, SELFPAY ==
[2024-02-20 11:29] VITALS: BP 151/95; PULSE 85; RESP 17; TEMP 36.8; O2SAT 96
--- NOTE | 2024-02-20 11:34 | XRR_ITS ---
PROCEDURE INFORMATION: Exam: XR Chest Exam date and time: 02/20/2024 11:52 AM Age: 43 years old Clinical indication: Chest pressure; Prior surgery; Surgery date: 6+ months; Surgery type: Cardiac stent; Patient HX: PT complains of intermittent chest pain for a couple days. PT states the pain lasts for about 5-10 minutes. PT also complains of left sided shoulder pain. PT also complains of shortness of breath but states i've also been sick with bronchitis. PT is on antibiotics. PT states he is not having any chest pain, but is complaining of his shoulder hurting. TECHNIQUE: Imaging protocol: Radiologic exam of the chest. Views: 1 view. COMPARISON: CT angio chest PE protcl [id number] 09/17/2022 1:39 PM FINDINGS: Lungs: Platelike atelectasis involves the left lung base. I see no lung mass or infiltrate. Pleural spaces: Unremarkable. No pleural effusion. No pneumothorax. Heart/Mediastinum: Unremarkable. No cardiomegaly. Bones/joints: Unremarkable. XR/XR chest 1V portable [id number] IMPRESSION: No acute findings.
--- NOTE | 2024-02-20 11:37 | ECG_ITS ---
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 Measurements Intervals [place] Rate: 84 P: 41 [place]: 170 QRS: -14 QRSD: 99 T: 56 QT: 387 QTc: 460 Interpretive Statements SINUS RHYTHM NONSPECIFIC T-WAVE ABNORMALITY Compared to ECG 09/17/2022 00:46:41 T-wave abnormality now present ST (T wave) deviation no longer present Myocardial infarct finding no longer present Electronically Signed On 02-20-2024 13:32:32 CDT by Susanne Hodges M.D. [id number]
[2024-02-20 11:48] VITALS: RESP 17
[2024-02-20] MEDS: morphine 4 mg/mL SDV 1 mL IVP (11:48)
[2024-02-20] MEDS: ondansetron 2 mg/ML SDV 2 mL 4 MG IVP (11:49)
[2024-02-20 12:11] LABS: Basophils # 0.1 10^3/uL (0.0-0.1); Basophils % 0.6 %; Eosinophils # 0.1 10^3/uL (0.0-0.8); Eosinophils % 0.8 %; Hematocrit 46.6 % (37-53); Lymphocytes # 2.2 10^3/uL (0.8-4.8); Lymphocytes % 21.4 %; Mean Corpuscular HGB Conc 33.5 g/dL (30-55); Mean Corpuscular Hemoglobin 27.9 pg (27-33); Mean Corpuscular Volume 83.4 fl (82-101); Mean Platelet Volume 10.6 fL (7.4-10.4); Monocytes # 0.7 10^3/uL (0.2-0.9); Monocytes % 7.4 %; Neutrophils # 6.97 10^3/uL (1.8-7.7); Neutrophils % 69.5 %; Nucleated Red Blood Cells % 0 %; Platelet Count 308 10^3/cmm (157-399); Red Blood Count 5.59 10^6/uL (3.85-5.65); Red Cell Distribution Width 12.5 % (12.1-15.1); White Blood Count 10.03 10^3/uL (3.29-11.43)
[2024-02-20 12:25] LABS: INR 0.95 (0.8-1.2)
[2024-02-20 12:26] LABS: Partial Thromboplastin Time 28.5 SECONDS (23.9-36.7)
[2024-02-20 12:28] LABS: D Dimer 0.35 ug/mLFEU (0-0.59)
[2024-02-20 12:32] LABS: Troponin(5th) Baseline 12 ng/L (0-15)
[2024-02-20 12:39] LABS: Blood Urea Nitrogen 11 mg/dL (6-20); Calcium 8.9 mg/dL (8.5-10.5); Carbon Dioxide 24 mmol/L (22-29); Chloride 100 mmol/L (98-107); Creatinine Clr Calc Pharmacy 206.8405; Glomerular Filtration Rate 145.7 mL/min (90-130); Glucose 200 mg/dL (65-115); NT Pro B Type Natriuretic Pept 281 pg/mL (0-125); Osmolality Calculated 291 mOsm/kg (285-295); Sodium 138 mmol/L (136-145)
[2024-02-20 12:40] LABS: Anion Gap 17.8 (5-19); Potassium 3.8 mmol/L (3.5-5.1)
[2024-02-20 12:53] VITALS: BP 174/110; PULSE 80; RESP 12; O2SAT 95
[2024-02-20 13:30] VITALS: BP 154/92; PULSE 78; RESP 14; O2SAT 96
--- NOTE | 2024-02-20 13:34 | ECG_ITS ---
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 Measurements Intervals [place] Rate: 75 P: 36 [place]: 175 QRS: -27 QRSD: 107 T: 32 QT: 408 QTc: 457 Interpretive Statements SINUS RHYTHM ANTERIOR MYOCARDIAL INFARCTION , PROBABLY RECENT Compared to ECG 02/20/2024 11:37:28 Myocardial infarct finding now present T-wave abnormality no longer present Electronically Signed On 02-20-2024 13:49:38 CDT by Susanne Hodges M.D. [email or web address]
[2024-02-20 14:08] LABS: Troponin 5 2HR 10.99 ng/L (0-15)
[2024-02-20 14:09] LABS: Troponin 5 2HR Delta -1.01 ABS# (0-10)
[2024-02-20] MEDS: ketorolac 30 mg/mL INJ 15 MG IVP (14:15)
[2024-02-20 14:17] VITALS: BP 128/82; PULSE 76; RESP 18; O2SAT 94
--- NOTE | 2024-02-20 14:33 | ED_ITS ---
HPI - Chest Pain 2 General: Chief Complaint: Chest Pain Stated Complaint: chest tightness, shoulder pain, high bp Time Seen by Provider: 02/20/24 11:28 History of Present Illness: This patient is a 43-year-old white male who presents to the ER stating that he has had intermittent chest pain for the past 2 days. States it lasts about 5 to 15 minutes when it comes on. It is a tight sensation. States he did have some shortness of breath with the chest pain and some diaphoresis. He is not having any chest pain currently nor any shortness of breath. He is having some mild left scapular pain which she describes as sharp. Patient states he is currently being treated for bronchitis with an antibiotic. He has not had a fever. He has been coughing. Patient does have a history of coronary artery disease and did have a stent placed last year. He is also insulin-dependent diabetic and has hypertension. He does not smoke. Associated symptoms: Reports dyspnea Related Data Home Medications Medication Instructions Recorded Confirmed citalopram 40 mg tablet 40 mg PO DAILY 09/14/22 02/20/24 clonidine HCl 0.2 mg tablet 0.2 mg PO BID 09/14/22 02/20/24 azithromycin 250 mg tablet See Rx Instructions .Route .COMPLEX 02/20/24 02/20/24 clopidogrel 75 mg tablet (Plavix) 75 mg PO DAILY 02/20/24 02/20/24 hydralazine 50 mg tablet 50 mg PO TID 02/20/24 02/20/24 metformin 500 mg tablet,extended 1,000 mg PO BID 02/20/24 02/20/24 release 24 hr methylprednisolone 4 mg tablets in See Rx Instructions .Route .COMPLEX 02/20/24 02/20/24 a dose pack metoprolol succinate 200 mg See Rx Instructions .Route .COMPLEX 02/20/24 02/20/24 tablet,extended release 24 hr tirzepatide 2.5 mg/0.5 mL 2.5 mg SUBCUT Q7D 02/20/24 02/20/24 subcutaneous pen injector (Logan) Previous Rx's Medication Instructions Recorded aspirin 81 mg tablet,delayed 81 mg PO DAILY #90 tabs 09/17/22 release hydrochlorothiazide 25 mg tablet 25 mg PO DAILY #90 tabs 07/23/23 telmisartan 80 mg tablet 80 mg PO DAILY #90 tabs 07/23/23 Allergies Allergy/AdvReac Type Severity Reaction Status Date / Time No Known Allergies Allergy Verified 07/23/23 13:29 Review of Systems 2 General: Reports: 10 or more systems reviewed and unremarkable except in HPI and below Card: Reports: chest pain Resp: Reports: dyspnea Musc: Reports: other (Left scapular pain.) PFSH ED 2 PFSH: Medical History Atherosclerosis of coronary artery Diabetes ST elevation myocardial infarction (STEMI) Hypertension Social History Alcohol intake: never Physical Exam 2 Const: COMMON NORMALS: no acute distress, patient oriented x3 and no limitations GENERAL APPEARANCE: cooperative and comfortable HENMT: COMMON NORMALS: normocephalic, atraumatic, Normal nasal mucous membranes and turbinates present, moist oral mucous membranes and oropharynx normal HEAD & SCALP: normal to inspection, normocephalic and atraumatic F KATTY & SINUS: normal facial exam NOSE: Normal nasal mucous membranes and turbinates present Eye: COMMON NORMALS: Equal, round and reactive pupils present, EOMs intact bilaterally and conjunctivae normal GENERAL EYE: appearance normal, both eyes and all related structures CONJUNCTIVA: Yes conjunctivae normal PUPIL: Yes Equal, round and reactive pupils present Neck/C-Spine: COMMON NORMALS: supple and no JVD Chest: COMMONS NORMALS: normal inspection of the chest Resp: COMMON NORMALS: normal respiratory effort and clear to auscultation bilaterally AUSCULTATION: clear to auscultation bilaterally Cardio: COMMON NORMALS: no JVD, regular rate, regular rhythm, No gallops present (Cardio), No murmurs present (Cardio) and No rub (Cardio) RATE: r egular rate RHYTHM: regular rhythm GI: COMMON NORMALS: Normal to inspection, nondistended, normoactive bowel sounds present, Soft to palpation and non-tender AUSCULTATION: Yes normoactive bowel sounds PALPATION: Yes Soft to palpation : COMMON NORMALS: Yes no CVA tenderness BLADDER/KIDNEY EXAM: Yes no CVA tenderness Back/Pelvis: COMMON NORMALS: no CVA tenderness and thoracic and lumbar spine normal to inspection Extremity: COMMON NORMALS: normal to inspection Neuro: COMMON NORMALS: patient oriented x3 and CN's II-XII intact bilaterally Psych: COMMON NORMALS: mental status grossly normal, Normal thought process present and cooperative THOUGHT PROCESS: Normal thought process present Skin: COMMON NORMALS: no rashes or lesions noted, turgor normal and no jaundice GENERAL SKIN EXAM: no rashes or lesions noted and turgor normal Course 2 Vital Signs: Vital signs: Vital Signs Temperature 98.2 F 02/20/24 11:29 Pulse Rate 76 02/20/24 14:17 Respiratory Rate 18 02/20/24 14:17 Blood Pressure 128/82 02/20/24 14:17 Pulse Oximetry 94 02/20/24 14:17 Oxygen Delivery Me thod Room Air 02/20/24 14:17 MDM - Chest Pain Medical Decision Making EKG revealed normal sinus rhythm. He did have slight ST elevation in the anterior leads. I did compare this to an old EKG and he did have an anterior STEMI last year. Q waves in these leads represent infarct but the T wave abnormalities are no longer present. Chest x-ray was normal. CBC normal. BMP revealed a blood sugar of 200. D-dimer 0.35. Coags normal. BNP 281. Troponin was 12 with a 2-hour level of 11. Repeat EKG was unchanged from the initial EKG. Dr. Hodges did read those EKGs as well and I discussed the case with him on the phone. We did give him some morphine for the scapular pain which helped initially but the pain did return. We then gave him 15 mg of Toradol IV and the pain has resolved. I think the scapular pain is more musculoskeletal probably secondary to his coughing and has bronchitis. I recommended he follow-up with his primary care provider and/or assignment manager next week. He was discharged in stable condition. Lab Data 02/20/24 11:47 02/20/24 11:47 Radiology Impressions Chest X-Ray 02/20/24 11:34 IMPRESSION: No acute findings. Laboratory Results WBC 10.03 10^3/uL (3.29-11.43) 02/20/24 11:47 RBC 5.59 10^6/uL (3.85-5.65) 02/20/24 11:47 Hgb 15.60 g/dL (11.27-16.99) 02/20/24 11:47 Hct 46.6 % (37-53) 02/20/24 11:47 MCV 83.4 fl (82-101) 02/20/24 11:47 MCH 27.9 pg (27-33) 02/20/24 11:47 MCHC 33.5 g/dL (30-55) 02/20/24 11:47 RDW 12.5 % (12.1-15.1) 02/20/24 11:47 Plt Count 308 10^3/cmm (157-399) 02/20/24 11:47 MPV 10.6 fL (7.4-10.4) H 02/20/24 11:47 Neut % (Auto) 69.5 % 02/20/24 11:47 Lymph % (Auto) 21.4 % 02/20/24 11:47 [place] % (Auto) 7.4 % 02/20/24 11:47 Eos % (Auto) 0.8 % 02/20/24 11:47 Baso % (Auto) 0.6 % 02/20/24 11:47 Neut # (Auto) 6.97 10^3/uL (1.8-7.7) 02/20/24 11:47 Lymph # (Auto) 2.2 10^3/uL (0.8-4.8) 02/20/24 11:47 [place] # (Auto) 0.7 10^3/uL (0.2-0.9) 02/20/24 11:47 Eos # (Auto) 0.1 10^3/uL (0.0-0.8) 02/20/24 11:47 Baso # (Auto) 0.1 10^3/uL (0.0-0.1) 02/20/24 11:47 Nucleated RBC % (auto) 0 % 02/20/24 11:47 Nucleated RBCs # 0.0 /100WBC 02/20/24 11:47 PT 13.00 SECONDS (12.1-14.9) 02/20/24 11:47 INR 0.95 (0.8-1.2) 02/20/24 11:47 APTT 28.5 SECONDS (23.9-36.7) 02/20/24 11:47 D-Dimer 0.35 ug/mLFEU (0-0.59) 02/20/24 11:47 Sodium 138 mmol/L (136-145) 02/20/24 11:47 Potassium 3.8 mmol/L (3.5-5.1) 02/20/24 11:47 Chloride 100 mmol/L (98-107) 02/20/24 11:47 Carbon Dioxide 24 mmol/L (22-29) 02/20/24 11:47 Anion Gap 17.8 (5-19) 02/20/24 11:47 BUN 11 mg/dL (6-20) 02/20/24 11:47 Creatinine 0.6 mg/dL (0.7-1.2) L 02/20/24 11:47 GFR Calculation 145.7 mL/min (90-130) H 02/20/24 11:47 Glucose 200 mg/dL (65-115) H 02/20/24 11:47 Calculated Osmolality 291 mOsm/kg (285-295) 02/20/24 11:47 Calcium 8.9 mg/dL (8.5-10.5) 02/20/24 11:47 Troponin T Baseline 12 ng/L (0-15) 02/20/24 11:47 Troponin T 120 Minute 10.99 ng/L (0-15) 02/20/24 13:46 Delta Troponin T -1.01 ABS# (0-10) L 02/20/24 13:46 NT-Pro-B Natriuret Pep 281 pg/mL (0-125) H 02/20/24 11:47 All radiology interpretation(s) finalized by discharge Discharge Plan Discharge Patient Disposition: Home Clinical Impression: Chest pain Qualifiers: Chest pain type: unspecified Qualified Code(s): R07.9 - Chest pain, unspecified Condition: Stable Prescriptions: No Action hydrochlorothiazide 25 mg tablet 25 mg PO DAILY Qty: 90 3RF telmisartan 80 mg tablet 80 mg PO DAILY Qty: 90 3RF citalopram 40 mg tablet 40 mg PO DAILY clonidine HCl 0.2 mg tablet 0.2 mg PO BID aspirin 81 mg Tablet,Delayed Release (Dr/Ec) 81 mg PO DAILY Qty: 90 3RF azithromycin 250 mg tablet See Rx Instructions .ROUTE .COMPLEX Rx Instructions: Take as directed per package instructions. metoprolol succinate 200 mg tablet extended release 24 hr See Rx Instructions .ROUTE .COMPLEX Rx Instructions: Take 1 tablet by mouth in the morning and 0.5 tablet in the pm. hydralazine 50 mg tablet 50 mg PO TID methylprednisolone 4 mg tablets,dose pack See Rx Instructions .ROUTE .COMPLEX Rx Instructions: Take as directed per package instructions. metformin 500 mg tablet extended release 24 hr 1,000 mg PO BID Mounjaro 2.5 mg/0.5 mL pen injector 2.5 mg SUBCUT Q7D Rx Instructions: Thursday clopidogrel [Plavix] 75 mg tablet 75 mg PO DAILY Discharge Orders: Discharge ED (Routine); Ordered 02/20/24 Ordered By: Arash Birch Referrals: Da Espinosa [Primary Care Provider] - Patient Instructions: Chest Pain (DC) Activity Restrictions/Additional Instructions: Follow-up with your primary care provider and/or assignment manager next week for recheck. Coding Level of Care Code ED Billing And Insurance Coordinator for Marti Aguilar
[2024-02-20 14:44] VITALS: BP 126/83; PULSE 76; RESP 16; O2SAT 97
== END 2024-02-20 14:53 | disposition home or self-care (01) ==
PROVIDERS: Emergency Provider Emergency Medicine; PCP Physician Assistant
DX: R07.9 Chest pain, unspecified (principal); Z79.82 Long term (current) use of aspirin; Z79.02 Long term (current) use of antithrombotics/antiplatelets; Z79.84 Long term (current) use of oral hypoglycemic drugs; E11.9 Type 2 diabetes mellitus without complications; I10 Essential (primary) hypertension; I25.2 Old myocardial infarction
CPT/HCPCS: 71045; 80048; 83880; 84484; 85025; 85378; 85610; 85730; 93005; 96374; 96375; 99285; J1885; J2270; J2405

== ENCOUNTER → 2025-03-09 13:51 | Outpatient (BNVA) | payer OTHER, SELFPAY | PROVIDERS: PCP Physician Assistant; Visit Provider Podiatrist Foot & Ankle Surgery | DX: M25.571 Pain in right ankle and joints of right foot (principal); S93.401A Sprain of unspecified ligament of right ankle, initial encounter; E11.9 Type 2 diabetes mellitus without complications; W18.42XA Slipping, tripping and stumbling without falling due to stepping into hole or opening, initial encounter; Z79.84 Long term (current) use of oral hypoglycemic drugs | CPT/HCPCS: 73610 ==